=== PATIENT | male | born 1945 | race Caucasian/White ===

== ENCOUNTER 2016-11-28 22:35 | Inpatient (IN) | payer MEDICARE, OTHER ==
[~2016-11-28] VITALS: Ht 177.8 cm; Wt 118.1 kg
--- NOTE | ~2016-11-28 | CATH ---
Cardiac Diagnostic + PCI Report Demographics Patient Name SHIRA STILES Gender Male Date of 1945 Age 71 year(s) Patient Number [id number] Date of Study 11/30/2016 Visit Number [id number] Room Number G6216 [place] [id number] Ht 177.8 cm Wt 117.94 kg Referring Dane Tan Hortensia Primary Physician Physician MD Sera Saavedra MD Performing Efstraclaude Secondary Physician Physician Krista Saavedra MD Diagnostic Sera Assisting Physician Physician Krista Saavedra MD Interventional Efstratiou Physician Health Program Specialist Physician Krista Saavedra MD Findings and Conclusions Diagnostic Findings and Conclusion Severely elevated wedge pressure Severe pulmonary hypertension RCA not significantly diseased LAD mid 100% at the level of the previous stent. Subtotal stenosis of the circumflex is the culprit vessel for his non-STEMI Diagnostic Recommendations PCI of Circumflex and LAD Interventional Findings and Conclusion Successful revascularization of LAD and circumflex with a total of 5 drug eluting stent with IABP support Interventional Recommendations Aspirin 81mg and Plavix 75mg Watch for bleeding Procedure Description The patient was brought to the diagnostic cardiac catheterization-EP laboratory in the fasting, non-sedated state. Informed consent was obtained in the written and verbal form after the risks and benefits were explained. The patient had no further questions and agreed to proceed. The planned puncture-incision site(s) were shaved and prepped with ChloraPrep and draped in the usual sterile manner. Conscious sedation, supplemental oxygen, and pain control medications were delivered by a registered nurse under physician guidance. Surface ECG rhythm, blood pressure measurement, and pulse oximetry were monitored throughout the procedure. Arterial access. The access site was infiltrated with lidocaine. The vessel was entered with the Seldinger technique. A sheath was advanced into the vessel and used for catheter placement. Venous access. The access site was infiltrated with 2% lidocaine. The vessel was entered with the Seldinger technique. A sheath was advanced into the vessel and used for catheter placement. Selective left coronary angiography. A catheter was advanced into the left coronary vessel ostium under Fluoroscopic guidance. Contrast was injected by hand. Images were obtained in multiple projections. Selective right coronary angiography. A catheter was advanced into the right coronary vessel ostium under fluoroscopic guidance. Contrast was injected by hand. Images were obtained in multiple projections. Right heart catheterization. A [place] Miguel catheter was successfully advanced to the right atrium, right ventricle, pulmonary artery, and pulmonary artery wedge position under fluoroscopic guidance. Resting hemodynamics were obtained. Measurements included pressures, arterial and venous oxygen saturation samples, and cardiac output. The [place] was sutured in place and hooked to transducer on floor. IABP placement. The balloon catheter was advanced into the aorta and the tip was fluoroscopically positioned just distal to the left subclavian artery origin. The floppy guidewire was removed, and the central lumen of the catheter was flushed and attached to a pressure transducer. Balloon pumping was initiated, adjusting inflation and deflation times to maximize diastolic augmentation and minimize presystolic LV afterload. The intra-aortic balloon catheter was sutured in place at the end of the procedure. Angioplasty and Stent Placement: A guiding catheter was used to intubate the vessel. A 0.14 wire was then used to cross the lesion. A balloon catheter was placed across the lesion and inflated. The balloon catheter was then removed. A Drug Eluting Stent was placed and inflated. Post placement angiograms were performed. Arterial and Venous hemostasis was achieved. The patient was transferred to a regular nursing floor via cart accompanied by a nurse. The patient left the laboratory in stable condition. Diagnostic Cath Status: Urgent Interventional Cath Status: Urgent Procedure Procedure Type Diagnostic procedure:Angiography:, RHC w/Coronary Angio, Support:, IABP:, Insertion PCI procedure:Drug Eluting Coronary Stent:, LAD, CFX, PTCA:, LAD, CFX Indications: Acute [place] and CHF. The procedure was explained in detail to the patient. Risks, complications and alternative treatments were reviewed. Written consent was obtained. Medications Reviewed with Patient prior to Procedure. Angiographic Findings Dominance: Right Cardiac Arteries and Lesion Findings LMCA: Normal (0% Stenosis).Patent LAD: Stent occludedThere is a previous stent on Mid LAD. Lesion on Mid LAD: 100% stenosis 68 mm length reduced to 0%. Pre procedure LETHA 0 flow was noted. Post Procedure LETHA III flow was present. The guidewire cross was successful.The lesion was diagnosed as a high risk lesion.Culprit lesion. The lesion was previously treated with the following techniques: stent unknown type. This is in-stentrestenosis. Treatment results:Interventional treatment was successful. Devices used - Emerge Balloon 2.0 x 8. 4 inflation(s) to a max pressure of: 14 milo. - NC Emerge Balloon 2.5 x 15. 2 inflation(s) to a max pressure of: 20 milo. - Emerge Balloon 2.0 x 15. 2 inflation(s) to a max pressure of: 16 milo. - Promus Premier 2.25 x 24 Stent. 2 inflation(s) to a max pressure of: 20 milo. - Promus Premier 3.0 x 12 Stent. 1 inflation(s) to a max pressure of: 20 milo. - Promus Premier 3.0 x 32 Stent. 1 inflation(s) to a max pressure of: 11 milo. Lesion on Prox LAD: 90% stenosis . LCx: Lesion on Mid CX: 95% stenosis 52 mm length reduced to 0%. Pre procedure LETHA II flow was noted. Post Procedure LETHA III flow was present. The guidewire cross was successful.The lesion was diagnosed as a high risk lesion.Culprit lesion. Treatment results:Interventional treatment was successful. Devices used - Whisper Wire .014 x 190. Number of passes: 1. - Emerge Balloon 2.0 x 15. 3 inflation(s) to a max pressure of: 14 milo. - Promus Premier 2.25 x 32 Stent. 1 inflation(s) to a max pressure of: 11 milo. - NC Emerge Balloon 2.5 x 15. 3 inflation(s) to a max pressure of: 16 milo. - Promus Premier 3.0 x 20 Stent. 1 inflation(s) to a max pressure of: 16 milo. - NC Emerge Balloon 3.5 x 12. 1 inflation(s) to a max pressure of: 14 milo. Lesion on 1st Ob Tonja% stenosis . RCA: Lesion on Prox RCA: 25% stenosis . Lesion on R PDA: 30% stenosis . Coronary Tree Procedure Data Procedure Date Date: 11/30/2016Start: 11:26 AMEnd: 02:14 PM Entry Locations - Retrograde Percutaneous access was performed through the Right Radial artery (Primary location). A 6 Fr sheath was inserted. Unsuccessful closure attempt was performed using: an R band. Hemostasis was successfully obtained using Mechanical Compression. Closure Comments: 12 cc of air in the R band. - Antegrade Percutaneous access was performed through the Right Femoral vein. A 7 Fr sheath was inserted. Closure Comments: Sheath sutured in place.. - Retrograde Percutaneous access was performed through the Right Femoral artery. A 7 Fr sheath was inserted. This was exchanged for a 8 Fr sheath. Closure Comments: Sheath sutured in place. Procedure Medications Order and Administration + + + + + !Time !Medication !Dosage !Route ! + + + + + 11/30/2016 11:28 AM !Radial Heparin (ACC_3) !2500 units !I.A. ! + + + + + 11/30/2016 11:28 AM !Radial Nitroglycerin !100 mcg !I.A. ! + + + + + 11/30/2016 11:28 AM !Radial Verapamil !3 mg !I.A. ! + + + + + 11/30/2016 11:48 AM !Heparin (ACC_3) !4000 units !I.V. bolus ! + + + + + !11/30/2016 11:56 AM !Milrinone (Primacor) !0.25 mcg/kg/min !I.V. drip ! + + + + + !11/30/2016 12:30 PM !Heparin (ACC_3) !3000 units !I.V. bolus ! + + + + + 11/30/2016 12:46 PM !Fentanyl !50 mcg !I.V. ! + + + + + 11/30/2016 01:00 PM !Nitroglycerin !200 mcg !I.C. ! + + + + + !11/30/2016 01:29 PM !Plavix (ACC_8) !600 mg !P.O. ! + + + + + Devices Used - A6 Fr. BS JR 4 Diag. Catheterwas used for:Right coronary angiography. - A6 Fr. BS JL 3.5 Diag. Catheterwas used for:Left coronary angiography. - A6 Fr. XBLAD 3.5 Guide Catheterwas used for:Circumflex Intervention. Contrast Material - Isovue [id number] ml Fluoroscopy Time: Diagnostic: 28:42 minutes. Total: 28:42 minutes. Fluoroscopy Dose: Diagnostic: 3995 mGy. Total: 3995 mGy. Estimated Blood Loss: 50 ml. IABP: IABP was Inserted during procedure and prior to PCI. Additional [facility] PCI Information PCI Indication:PCI for high risk Non-STEMI or unstable angina. Medical History Allergies - Insulin. - Penicillin. - Eggs. Risk Factors The patient risk factors include:prior PCI on 03/29/2016;cerebrovascular disease, treated hypertension, family history of premature CAD, orally-treated diabetes mellitus, last creatinine: 0.8 mg/dl, creatinine clearance: 141.28 ml/min and former tobacco use. Admission Data Admission Date: 11/28/2016 Admission Time: 11:42 PM Admit Source: Transfer acute care facility Insurance Payors: Medicare. Admission Medications + +------+------+ + + + + !Medication !Dosage!Times !Last !Last !Administered !Comments ! ! ! !Per !Delivery !Delivery ! ! ! ! ! !Day !Date !Time ! ! ! + +------+------+ + + + + !ARB (any) ! ! ! ! !Yes ! ! + +------+------+ + + + + !Beta Lore! ! ! ! !Yes ! ! !(any) ! ! ! ! ! ! ! + +------+------+ + + + + !Clopidogrel ! ! ! ! !Yes ! ! + +------+------+ + + + + Clinical Evaluation Leading to Procedure - The patient's CAD presentation was assessed as: Non-STEMI. - The patient's anginal syndrome during the past two weeks was assessed as: Class IV according to the [place] Cardiovascular Society Classification System (CCS). Anti-anginal medications were prescribed during the past two weeks. The medication is: Beta Blockers. - The patient has been in a state of heart failure within the past two weeks. Snapshots Hemodynamics Condition: Rest O2 Consumption: Estimated: 301.56Heart Rate: 107 bpm Oxygen Saturation +--------+-----+----+ +---+ + !Location!pCO2 !pO2 !% Saturation !Hgb!O2 Content ! +--------+-----+----+ +---+ + !FA ! ! !87.7 ! ! ! +--------+-----+----+ +---+ + !PA ! ! !52 ! ! ! +--------+-----+----+ +---+ + Pressures (mmHg) +-----+ + !Site !Pressure ! +-----+ + !RA !/18 (19) ! +-----+ + !RV !87/17 ,20 ! +-----+ + !PCW !42/43 (40) ! +-----+ + !PA !93/42 (61) ! +-----+ + !AO !93/70 (83) ! +-----+ + !AO !101/68 (83) ! +-----+ + !AO !107/71 (89) ! +-----+ + !PA !75/31 (47) ! +-----+ + Cardiac Output +------+ + + + !Method!CO (l/min) !CI (l/min/m2) !SV (ml) ! +------+ + + + !Nolan !6.21 !2.7 !58.24 ! +------+ + + + Shunts Oxygen Values O2 Capacity 136 O2 Consumption 301.56 Flows (l/min) Qs 6.21 Vascular Resistance (dynes x sec x cm-5) + +-----+----+----+----+---------+-------+ !CO method !TSVR !SVR !TPVR!PVR !TPVR/TSVR!PVR/SVR! + +-----+----+----+----+---------+-------+ !Nolna !14.41!11.4!7.51!1.08!0.52 !0.09 ! + +-----+----+----+----+---------+-------+ !Qp or Qs !14.41!11.4! ! ! ! ! + +-----+----+----+----+---------+-------+ Signatures dtt: Roxann Zamora dtd: 11/30/16 1126 Physician Self Edit
--- NOTE | ~2016-11-28 | PUL ---
PATIENT'S NAME: LINSEY SILVA [facility] AGE: 71 Y [address] ROOM: [address] [address] LOCATION: GPCU ADMIT DATE: 11/28/2016 Pulmonary DISCHARGE DATE: 12/08/2016 FAMILY PHYSICIAN: Dominick Vela MD ATTENDING PHYSICIAN: Yousuf Lamb NAME OF PROCEDURE: Overnight Pulse Oximetry DATE OF PROCEDURE: December 07 to December 08, 2016 REASON FOR EXAM: Nocturnal hypoxemia RESULTS: It is unclear whether the test was performed on room air or supplemental oxygen. The recording time was 9 hours, 24 minutes, 36 seconds, with a total valid sampling time of 8 hours, 54 minutes, and 40 seconds. The highest pulse was 88, lowest pulse was 46, with a mean pulse of 74. The highest SpO2 was 100%, lowest SpO2 was 61%, with a mean SpO2 of 91.6%. The patient spent 1 hour, 55 minutes, and 56 seconds with SpO2 less than 89%, representing 21.7% of the total sleep time. The desaturation event index was elevated at 77.1. PHYSICIAN INTERPRETATION: The patient has evidence of significant nocturnal hypoxia and would qualify for supplemental oxygen as per Medicare criteria. However because of his significant nocturnal hypoxia with an elevated desaturation event index a sleep study is recommended at this time. MD MANAS REYNA/angelo /[id number] dtt: 12/11/16 1340 , LIZZIE PIZANO dtd: 12/11/16 0734
--- NOTE | ~2016-11-28 | CON ---
PATIENT'S NAME: JAYA SESAY [facility] AGE: 71 Y [address] ROOM: [facility] [place], [place] [address] LOCATION: GICU ADMIT DATE: 11/28/2016 Consultation DISCHARGE DATE: FAMILY PHYSICIAN: Dominick Vela MD ATTENDING PHYSICIAN: ALIZE CALDERÓN REFERRING PHYSICIAN: Francisco J Coreas MD ADDENDUM: Jaya Sesay has been readmitted with possible lower GI bleeding. However, I got another call from the nurse, who is now saying that the patient also had low blood pressure. In view of this, we will be holding of on the preparation. However, I did discuss this with Dr. Calderón. In view of his hypotension and possible persistent bleeding, I have suggested that we perform an urgent CT angiogram done. Pending the results of that, we might be able to localize the location of bleeding and intervene accordingly. Should there be an upper GI bleeding, I recommend to do an urgent endoscopy tonight. In case of a lower GI bleed, we did discuss the use of interventional Radiology. FRANCISCO J COREAS MD AAN/modl /[id number] d: 11/29/16 0344 t: 11/30/16 1833, CONSULTATION REPORT
--- NOTE | ~2016-11-28 | HP ---
PATIENT'S NAME: LINSEY SILVA [facility] AGE: 71 Y [address] ROOM: [place] [address] LOCATION: GICU ADMIT DATE: 11/28/2016 History & Physical DISCHARGE DATE: FAMILY PHYSICIAN: Dominick Vela MD ATTENDING PHYSICIAN: ALIZE CALDERÓN DATE OF SERVICE: PRIMARY CARE PHYSICIAN: None. CHIEF COMPLAINT: Gastrointestinal bleed. HISTORY OF PRESENT ILLNESS: This is a 71-year-old male with a history of transient ischemic attack and coronary artery disease, status post stent. The patient is currently on Plavix. He had a stent in February of last year, after which he was placed on Plavix. The patient states that he had gastrointestinal bleed several years ago when he was placed on Aggrenox. The patient presented to [facility] with gastrointestinal bleed. He started having bright red bleeding per rectum. He has not noticed any black stools. The patient was apparently fine for the past five to six years. He is not on any long-term anticoagulation. The patient was transferred to [facility] for higher level of care, and definitive GI evaluation under Dr. Dietz's care. As per history obtained from the patient, he started having gastrointestinal bleed at about 08:30 a.m. yesterday. He then presented to [facility] and was admitted and evaluated. He continued to have gastrointestinal bleed, and his hemoglobin trended down from 14.5 to last reported about 9. The patient is lightheaded. His blood pressure is 110 systolic. He complains of lightheadedness at this point of time. He denies any chest pain or shortness of breath. He denies abdominal pain, diarrhea, or constipation. He does have slight tenderness to palpation in his left upper quadrant. He denies any aches or pains. He denies fever history. No other complaints at this point in time. REVIEW OF SYSTEMS: A 10-point review of systems done, and was otherwise negative except as mentioned above. HOME MEDICATIONS: PATIENT'S NAME: LINSEY SILVA [facility] AGE: 71 Y [address] ROOM: [place] [address] LOCATION: GICU ADMIT DATE: 11/28/2016 History & Physical DISCHARGE DATE: FAMILY PHYSICIAN: Dominick Vela MD ATTENDING PHYSICIAN: ALIZE CALDERÓN Per OCT. ALLERGIES: PENICILLIN AND INSULIN, DIFFERENT TYPES. FAMILY HISTORY: Parents with heart disease. Sibling with congenital heart disease. PAST SURGICAL HISTORY: 1. Cholecystectomy. 2. Appendectomy. 3. Tonsillectomy. 4. Heart stent in February of 2016. PAST MEDICAL HISTORY: 1. History of diabetes mellitus. 2. History of transient ischemic attack. 3. History of gastrointestinal bleed in the past. 4. Coronary artery disease, status post stent. 5. Diabetes mellitus. 6. Atrial fibrillation. 7. Hypertension. SOCIAL HISTORY: He denies smoking or alcohol use. He is a former smoker with 89-biot-rlyc smoking history. PHYSICAL EXAMINATION: VITAL SIGNS: Temperature was 98.3, pulse was 115 and regular, respirations were 29, blood pressure was 113/62, and saturation was 95% on room air. GENERAL: The patient is alert and oriented x3. He follows all commands. In no acute distress. HEENT: Head: Normocephalic and atraumatic. Eyes: Pupils were equal, round, and reactive to light. Extraocular muscles were intact. Mouth: Oropharynx was moist. NECK: Supple. No nuchal rigidity. HEART: Tachycardic. Regular rhythm. LUNGS: Clear to auscultation bilaterally. ABDOMEN: Soft, nontender, and nondistended. Bowel sounds are present. No guarding or rigidity was noted. EXTREMITIES: No clubbing, cyanosis, or edema. VASCULAR: Pulses are 2+ distally bilaterally. NEUROLOGIC: The patient is alert and oriented x3. He follows all commands. He moves all extremities. Cranial nerves II through XII were grossly intact. PATIENT'S NAME: LINSEY SILVA [facility] AGE: 71 Y [address] ROOM: [place] [address] LOCATION: [facility] ADMIT DATE: 11/28/2016 History & Physical DISCHARGE DATE: FAMILY PHYSICIAN: Dominick Vela MD ATTENDING PHYSICIAN: ALIZE CALDERÓN LABORATORY DATA AND DIAGNOSTIC STUDIES: Studies were reviewed from the referral hospital. The patient had a CMP (comprehensive metabolic panel) that showed glucose of 130, BUN of 18, creatinine of 0.9, total bilirubin of 0.54, alkaline phosphatase of 54, ALT of 6, AST of 10, albumin of 3.2, globulin of 2.6, calcium of 8.3 and corrected calcium of 8.9, sodium of 137, potassium of 4.0, chloride of 99, bicarbonate of 26.6, anion gap of 16, GFR (glomerular filtration rate) of 87, and lipase of 14. Troponin T is 0.04 and normal. Complete blood count had shown hemoglobin of 9.0, PTT of 30.5, INR of 1.2, PT of 15.5, WBC of 8.1, initial hemoglobin of 10.4, hematocrit of 31.8, and platelets of 242. Studies were done at [facility]. EKG at [facility] showed sinus rhythm with PVCs and a rate of 96 beats per minute. No acute ST changes were noted. Complete blood count showed a white count of 9.9, hemoglobin of 8.9, hematocrit of 28.4, and platelets of 249. CMP (comprehensive metabolic panel) showed sodium of 143, potassium of 3.9, chloride of 107, bicarbonate of 25, BUN of 13, creatinine of 0.8, glucose of 101, calcium of 7.7, total protein of 5.5, albumin of 2.6, AST of 8, ALT of 12, alkaline phosphatase of 51, total bilirubin of 0.6, anion gap of 14.9, and globulin of 2.9. Glomerular filtration rate of more than 60. Hemoglobin A1c was 7.8. PT is 12.3, INR is 1.2, and PTT is 25. The patient had a chest x-ray done that showed no acute cardiopulmonary abnormality. CT angiogram of abdomen and pelvis was done and showed no active bleeding. Essentially normal CT of the abdomen and pelvis with no active gastrointestinal bleed visualized. Enlarged prostate measuring 5.5 x 3.9 cm noted. Left renal cyst measuring 2.3 cm was noted. ASSESSMENT AND PLAN: 1. Gastrointestinal bleed. I will continue checking H&H checks q.4 hours. We will transfuse PRBCs (packed red blood cells) if hemoglobin is less PATIENT'S NAME: LINSEY SILVA [facility] AGE: 71 Y [address] ROOM: [place] [address] LOCATION: [facility] ADMIT DATE: 11/28/2016 History & Physical DISCHARGE DATE: FAMILY PHYSICIAN: Dominick Vela MD ATTENDING PHYSICIAN: ALIZE CALDERÓN than or equal to 7.0. The patient is currently getting one unit of PRBC (packed red blood cells). Consult GI for further plan per Dr. Dietz. Continue Protonix gtt. 2. Hypotension. I will utilize Lei-Synephrine for hypotension. We will transfuse PRBCs (packed red blood cells) as needed. Keep MAP (mean arterial pressure) greater than 65. 3. History of coronary artery disease, status post stent. I will hold Plavix for now. 4. History of hypertension. Hold blood pressure medications since the patient is slightly hypotensive. 5. Diabetes mellitus. The patient is allergic to insulin. We will do Accu- Cheks. We will continue him on his home anti-diabetic medication. 6. Deep vein thrombosis prophylaxis. Sequential compresssion devices to legs and history of gastrointestinal bleed. 7. Code status is full code. Discussed with the patient at the time of admission. 8. History of transient ischemic attack with no neurologic deficits. Monitor for now. ALIZE CALDERÓN MD MT/modl /[id number] D: T: HISTORY & PHYSICAL
--- NOTE | ~2016-11-28 | DS ---
PATIENT'S NAME: LINSEY SILVA [facility] AGE: 71 Y [address] ROOM: [address] [place], [place] [address] LOCATION: GPCU ADMIT DATE: 11/28/2016 Discharge Summary DISCHARGE DATE: 12/08/2016 FAMILY PHYSICIAN: Dominick Vela MD ATTENDING PHYSICIAN: Yousuf Lamb FINAL DIAGNOSES: 1. Hemorrhagic shock, secondary to gastrointestinal bleed. 2. Acute gastrointestinal bleed. 3. Tut-UQ-ivsudvkzi myocardial infarction. 4. Hjgua-kd-nmnbxek systolic congestive heart failure. 5. Acute blood loss anemia. 6. Nocturnal hypoxia. 7. Acute hypoxic respiratory failure. 8. Diabetes mellitus, insulin using. 9. Essential hypertension. 10. Hypokalemia. 11. Hypomagnesemia. PROCEDURES: 1. He had a heart cath with stent placement by Dr. Zamora on November 30, 2016. The patient had significant disease in the LAD and circumflex and was revascularized with 5 drug-eluting stents and was put on a balloon pump postprocedure. For details of hospitalization, please see the history and physical dictated by Dr. Yousuf Lamb. 2. EGD colonoscopy with Dr. Dietz December 04, 2016. LABORATORY STUDIES: On admission, sodium was 143, discharge 136, potassium on admit was 3.9, got as low as 3.1, at discharge 3.6; BUN on admission was 13, at discharge 19; creatinine on admission was 0.8, high it got was 1.1, discharge 0.9. Liver enzymes were normal. Magnesium was 1.9, at discharge, it was 1.6. Troponin on admission was 0.856, on November 30, it got as high as 21.4. Pro-BNP on admission was 4452, most prior to discharge 2975. Hemoglobin A1c 7.5. White blood cell count on admission was 1.9, most prior to discharge 12.2; hemoglobin on admission was 8.9, at discharge 10.2, platelet count on admission 249, most prior to discharge 392. X-RAY DATA: Chest x-ray on admission did show an enlarged cardiac silhouette with vascular congestion. CT scan of the abdomen did not show any evidence of abdominal aortic aneurysm or rupture. Chest x-ray on admission did show cardiomegaly and vascular congestion and as with the x-ray shows on December 01 and December 03 as well. CARDIOVASCULAR DATA: Echocardiogram on admission showed that his ejection fraction was 20% to 25%. He had mild left ventricular hypertrophy. He had PATIENT'S NAME: LINSEY SILVA [facility] AGE: 71 Y [address] ROOM: [place] [address] LOCATION: GPCU ADMIT DATE: 11/28/2016 Discharge Summary DISCHARGE DATE: 12/08/2016 FAMILY PHYSICIAN: Dominick Vela MD ATTENDING PHYSICIAN: Yousuf Lamb extensive wall motion abnormalities and reduced right ventricular function. HOSPITAL COURSE: The patient was admitted and accepted in transfer from [place] with hemorrhagic shock. He had received blood en route. He was admitted into the Intensive Care Unit and was given aggressive IV hydration. He was placed on IV Protonix. He was typed and crossed for blood. Dr. Dietz was asked to see the patient. He did feel that he would most likely would need to proceed with an EGD and colonoscopy. Laboratory was checked including a troponin that did return elevated. He was put on sliding scale insulin. He did receive blood as needed. He did eventually need IV Lei-Synephrine to support his blood pressure. He was initiated on Lantus to help try and control his blood pressure. We did trend his hemoglobins and transfused him when it was felt that it was appropriate. With the elevation in the troponin, Cardiology was consulted. Please see the note dictated by Andrez Acosta. Dr. Zamora did feel that the patient needed to go to [facility] as it was noted that he was starting to get into congestive heart failure due to the volume he had received. He was taken to the [facility]. Please read his cath note for full details. He did receive 5 stents and was admitted back into the Intensive Care Unit on a balloon pump. He did receive more blood postoperatively. He did receive a total of 4 units of packed red blood cells here. He did require being on heparin with the balloon pump. It was felt that with the balloon pump and Lasix they were able to mobilize significant amounts of fluid. Eventually, the balloon pump was removed, his medications were adjusted to control his blood pressure, heart rate, and to try and optimize his left ventricular function. His potassium and magnesium replaced as necessary and adjustments were made in his insulin. It was felt that he needed to have an EGD and colonoscopy prior to discharge. I discussed with Dr. Dietz and he did concur. He did undergo an EGD and colonoscopy, he was found to have gastritis, but there was no evidence of anything that was actively bleeding. The patient was restarted on a diet and he did tolerate that. He was transferred out of the Intensive Care Unit and transferred to the floor, where he continued to receive medications to try and treat the congestive heart failure as well as improve his blood pressure. There was concern about nocturnal hypoxia and he underwent an overnight trend oximetry on December 07 and it did in fact show that he had episodes of desaturation during the night and did in fact qualify for nocturnal oxygen. After discussion with Dr. Zamora, it was felt that the patient was stable for discharge, and the patient is discharged to home. DISCHARGE INSTRUCTIONS: He is to follow his diabetic diet. He is to follow up with Dr. Vela, his primary care provider, in 3-5 days, and Dr. Zamora in 2 weeks. He is to get outpatient cardiac rehab in his home town. He does need to have a sleep study, but he was told this could be setup by his primary care provider, Dr. Vela. PATIENT'S NAME: LINSEY SILVA [facility] AGE: 71 Y [address] ROOM: [address] [address] LOCATION: GPCU ADMIT DATE: 11/28/2016 Discharge Summary DISCHARGE DATE: 12/08/2016 FAMILY PHYSICIAN: Dominick Vela MD ATTENDING PHYSICIAN: Yousuf Lamb DISCHARGE MEDICATIONS: 1. Aspirin 81 mg daily. 2. Lipitor 80 mg daily. 3. Coreg 12.5 mg twice daily. 4. Victoza 0.6 mg daily. 5. Nitrostat 0.4 mg sublingual p.r.n. chest pain. 6. Zyrtec 10 mg daily. 7. Nexium 20 mg twice daily. 8. Humibid LA 600 mg twice daily. 9. Multivitamin daily. 10. Lasix 40 mg twice a day. 11. Potassium chloride 40 mEq daily. 12. Toujeo 30 units subcu daily. 13. Xalatan eyedrops 1 drop each eye at bedtime. 14. Brilinta 60 mg twice daily. 15. Aldactone 25 mg daily. 16. Magnesium 250 mg daily. 17. Meclizine 25 mg twice daily as needed for dizziness. 18. Glipizide/metformin 5/500 1 tablet twice daily. 19. Prinivil 5 mg daily. PROGNOSIS: Overall, prognosis at discharge was good. JORDAN ELLIS MD LAW/modl /[id number] CC: MD Roxann Devine MD d: 12/09/16 0146 t: 12/09/16 1816, DISCHARGE SUMMARY
--- NOTE | ~2016-11-28 | ECHO ---
Transthoracic Echocardiography Report (TTE) Demographics Patient Name LINSEY SILVA Date of Study 11/30/2016 Patient Number [id number] Visit Number [id number] Date of 1945 Room Number G6216 Gender Male Number Age 71 year(s) Referring Dane Bazan Ager Operator Aleida Gusman [facility] Physician MD Mirela Daigle MD Physician Interpreting Sera Velasco Intensive Care Unit Registered Nurse Physician A Supervising Ordering Mirela Saavedra MD, MD/MLP Physician Nurse Stress Supervisor Carpenters Conclusions Contractility Score Summary At rest the following contractility abnormalities were noted: Hypokinesis of the Mid ulysses-lateral, the Mid infero-septal, the Mid inferior, the Mid infero-lateral, the Basal anterior and the Basal ulysses-lateral segments; Akinesis of the Mid anterior, the Mid ulysses-septal, the Apical inferior, the Apical septal, the Apical lateral, the Apical anterior and the Apical cap segments. Contractility of all other segments appeared normal. Summary Technically difficult exam. The estimated left ventricular ejection fraction is 20-25%. The left ventricle is upper normal in size . Mild concentric left ventricular hypertrophy. Diastolic function indeterminate due to patient's arrhythmia. Extensive wall motion abnormalities Mildly dilated right ventricle. Mildly reduced right ventricular function. Normal mitral valve structure Mild-moderate mitral regurgitation by color Doppler. Trivial posterior pericardial effusion. Procedure Type of Study TTE procedure:2D Echocardiogram, M-Mode, Doppler , Color Doppler. Procedure Date Date: 11/30/2016 Start: 07:03 AM Study Location: Inpatient Portable Technical Quality: Fair due to body habitus. Indications:Hypotension. Patient Status: Routine HR: 123 bpm BP: 114/73 mmHg Allergies - Insulin. - Penicillin. - Eggs. M-Mode/2D Measurements LV Diastolic Dimension: 5 cm LV Systolic Dimension: 4.39 cm LV Septum Diastolic: 1.23 cm LV PW Diastolic: 1.2 cm AO Root Dimension: 2.6 cm Cardiac Output: 5.28 l/min LA Dimension: 4.4 cm LVOT: 2.1 cm LVOT VTI: 12.4 cm RV Base: 4.67 cm LV Stroke volume: 42.93 ml RV Length: 7.14 cm TAPSE: 1.63 cm TDI-S': 10.6 cm/s Doppler Measurements AV Peak Velocity: 1.28 m/s MV Peak E-Wave: 0.98 m/s AV Peak Gradient: 6.55 mmHg AV Mean Gradient: 4 mmHg LVOT Peak Velocity: 0.83 m/s E' Septal Velocity: 0.11 m/s E' Lateral Velocity: 0.08 m/s Findings Left Ventricle The left ventricle is upper normal in size . Mild concentric left ventricular hypertrophy. Diastolic function indeterminate due to patient's arrhythmia. Extensive wall motion abnormalities Right Ventricle Mildly dilated right ventricle. Mildly reduced right ventricular function. Left Atrium The left atrium is moderately dilated. Right Atrium The right atrium is mild to moderately dilated. Unable to visualize IVC due to poor subcostal window. Mitral Valve Normal mitral valve structure Mild-moderate mitral regurgitation by color Doppler. Aortic Valve The aortic valve is mildly sclerotic. Tricuspid Valve Normal tricuspid valve structure and function. No significant tricuspid regurgitation. Pulmonic Valve The pulmonic valve is not well visualized. Pericardial Effusion Trivial posterior pericardial effusion. Miscellaneous Visualized portions of the aortic root and ascending aorta appear normal in size. Pleural Effusion No evidence of pleural effusion. Contractility Score LV regional wall motion:(0-Non visualized 1-Normal 2-Hypokinesis 3-Akinesis 4-Dyskinesis 5-Aneurysm) Signature dtt: Roxann Zamora dtd: 11/30/16 0703 Physician Self Edit
--- NOTE | ~2016-11-28 | CON ---
PATIENT'S NAME: LINSEY SILVA [facility] AGE: 71 Y [address] ROOM: [id number] [place], [place] [address] LOCATION: GICU ADMIT DATE: 11/28/2016 Consultation DISCHARGE DATE: FAMILY PHYSICIAN: Dominick Vela MD ATTENDING PHYSICIAN: ALIZE CALDERÓN REFERRING PHYSICIAN: Travis Dietz MD REASON FOR CARDIOLOGY CONSULT: Elevated troponin. HISTORY OF PRESENT ILLNESS: This is a 71-year-old male who is in a very difficult situation. He initially presented to [facility] with GI bleeding. He had anabell red blood in his stool that started early in the morning. He was then transferred to [facility] for higher level of care and evaluation by the Gastrointestinal Service due to a drop in hemoglobin. The patient denies any history of myocardial infarction, but he does have a history of a stent to an unknown vessel in 2016. He also has a noted history of GI bleed while on aspirin and Plavix as well as another GI bleed about 6 years ago while on Aggrenox after a TIA. A brief echocardiogram at the bedside by Dr. Zamora showed apical akinesis as well as an ejection fraction of 30%. Overall, the patient denies chest pain. He also denies palpitations, shortness of breath, nausea, or vomiting. He does admit to being lightheaded at times, but denies any syncope. The patient appears quite anxious and initial evaluation by Dr. Zamora on 11/29/2016, he discussed the patient's prognosis with the daughter who requests that our service not divulge to the patient that he is having a non-ST elevated myocardial infarction. Dr. Zamora did speak with the daughter and explained this is a potentially life-threatening situation. PAST MEDICAL HISTORY: 1. Coronary artery disease. 2. History of TIA. 3. Hypertension. 4. Diabetes mellitus. 5. History of GI bleeding as well as current GI bleed. 6. Past history of atrial fibrillation. 7. Dyslipidemia. PAST SURGICAL HISTORY: 1. Cholecystectomy. 2. Appendectomy. 3. Previous coronary stenting in 2016, the patient is unsure of vessel. 4. Tonsillectomy. FAMILY HISTORY: The patient's parents both have a history of heart disease. He also has a PATIENT'S NAME: STRUSS, [facility] AGE: 71 Y [address] ROOM: [place] [address] LOCATION: GICU ADMIT DATE: 11/28/2016 Consultation DISCHARGE DATE: FAMILY PHYSICIAN: Dominick Vela MD ATTENDING PHYSICIAN: ALIZE CALDERÓN sibling with a history of congenital heart disease. SOCIAL HISTORY: The patient is a former cigarette smoker. He smoked 1 pack of cigarettes per day for a total of 20 years. He denies alcohol or illicit drug use. CURRENT MEDICATIONS: 1. Lasix 40 mg IV twice daily. 2. Lei-Synephrine IV for hypotension. 3. Protonix IV drip. 4. Requip 1 mg. 5. Toujeo subcu daily in the evening. MEDICATION ALLERGIES: Include insulin causing itching as well as penicillin. He also has allergy to egg yolks which caused hives. REVIEW OF SYSTEMS: Pertinent positive review of systems listed in the HPI. All other review of systems evaluated and negative. PHYSICAL EXAMINATION: VITAL SIGNS: Temperature 97.6, pulse 123, respirations 24, blood pressure 116/75, and O2 saturation 90% on 2 L nasal cannula. The patient weighs 117.5 kg. SKIN: [place], warm, and dry. EYES: Sclerae clear. No xanthelasmas. ENT: Oral mucosa is pink and moist. No jugular venous distention. No carotid bruits. CHEST: Respirations are even and unlabored. Lungs are clear to auscultation. HEART: Regular rate and rhythm. Normal S1, S2. Does have the presence of an S4 gallop. ABDOMEN: Soft and nontender. MUSCULOSKELETAL: Equal muscle strength to upper and lower extremities bilaterally against resistance. EXTREMITIES: Peripheral pulses palpable. No clubbing or cyanosis noted. Does have mild lower extremity edema present. PSYCH: Alert and oriented, but anxious. IMPRESSION AND PLAN: Per Dr. Zamora: 1. Acute non-ST elevated myocardial infarction. 2. Acute gastrointestinal bleeding. Hemoglobin currently stable and plans for a colonoscopy. 3. Coronary artery disease with a history of stenting. His daughter admits PATIENT'S NAME: LINSEY SILVA [facility] AGE: 71 Y [address] ROOM: [place] [address] LOCATION: GICU ADMIT DATE: 11/28/2016 Consultation DISCHARGE DATE: FAMILY PHYSICIAN: Dominick Vela MD ATTENDING PHYSICIAN: ALIZE CALDERÓN that there is history of previous blockages, but they were not fixed with a previous stent due to risk for acute renal failure secondary to contrast dye. 4. Hypertension. 5. Anxiety. Case discussed again with Dr. Dietz, the truck hopper. The patient's troponins have peaked, but are still quite high and Dr. Dietz feels that the patient needs to have his heart issues addressed and we will have to accept the risk of bleeding. This was discussed with the family and they do state understanding of the significant risk of hemorrhage, but that he is in failure and we have to see if we can help. We will urgently take him to the catheterization suite for selective coronary angiography and possible percutaneous intervention. We will continue to monitor, evaluate, and treat as appropriate. Thank you for this consult. Thank you for allowing [facility] to interact in the care of this patient. YNES CÁRDENAS APRN FOR MD TERRIE ODEN/margiel /[id number] d: 12/01/16 0122 t: 12/16/16 1048, CONSULTATION REPORT
--- NOTE | ~2016-11-28 | CON ---
PATIENT'S NAME: LINSEY SILVA [facility] AGE: 71 Y [address] ROOM: [place] [address] LOCATION: GICU ADMIT DATE: 11/28/2016 Consultation DISCHARGE DATE: FAMILY PHYSICIAN: Dominick Vela MD ATTENDING PHYSICIAN: YOUSUF CALDERÓN DATE OF CONSULTATION: 11/29/2016 REFERRING PHYSICIAN: Travis Dietz MD REFERRING PHYSICIAN: Yousuf Calderón MD. CONSULTING PHYSICIAN: Travis Dietz MD. REASON FOR CONSULTATION: Possible lower GI bleeding. HISTORY OF PRESENT ILLNESS: The patient is a pleasant 71-year-old white male, who was admitted to [facility] with a 12-hour history of rectal bleeding. According to the patient, he started developing fresh blood per rectum in the morning. He continued to having it during the day. He presented to the emergency room in [facility]. He was found to have somewhat low blood pressure. He also had some dizziness. His hemoglobin had dropped from around the baseline of 14 to 9. He was transferred here for higher level of care. The patient has mild left lower quadrant discomfort. He had undergone a cardiac catheterization and stent placement in February of 2016. He said he had similar problem several years ago. At that time, he did have an anticoagulation for the cardiac catheterization. He has underwent upper endoscopy and colonoscopy at that time and found to be negative. We do not have access to those results at this time. The patient denies any history of nausea, vomiting, or hematemesis. Denies any history of NSAID use. The stool according to him is diarrhea along with fresh blood material. PAST MEDICAL HISTORY: Significant for coronary artery disease. He has hypertension, dyslipidemia, he has had longstanding GERD, he has diabetes, he has had a transient ischemic attack in the past. He has had atrial fibrillation. He had a colonoscopy and polypectomy in 1999. PAST SURGICAL HISTORY: Significant for cholecystectomy and appendectomy. He has also had back problems, for which he uses hydrocodone on and off. PATIENT'S NAME: LINSEY SILVA [facility] AGE: 71 Y [address] ROOM: [place] [address] LOCATION: GICU ADMIT DATE: 11/28/2016 Consultation DISCHARGE DATE: FAMILY PHYSICIAN: Dominick Vela MD ATTENDING PHYSICIAN: YOUSUF CALDERÓN ALLERGIES: HIS ALLERGIES INCLUDE: 1. AGGRENOX, WHICH GAVE HIM MELENA. 2. DARVOCET GAVE HIM CRAMPS. 3. LEVEMIR GIVES HIM HIVES. 4. PENICILLIN GIVES HIM HIVES. Additional allergies as per MAR FAMILY HISTORY: Noncontributory to his problem. PSYCHOSOCIAL: As per chart. REVIEW OF SYSTEMS: A detailed 10-point review of system was done. It was found to be negative other than what is mentioned in history of present illness and past medical history. PHYSICAL EXAMINATION: GENERAL: He is alert and awake. VITAL SIGNS: His blood pressure 94/71 . GENERAL: Reveals no pallor, no icterus. CHEST: Clear to auscultation bilaterally. No wheezing or rhonchi. NECK: Supple. I do not feel any masses. No carotid bruits are heard. ABDOMEN: There is a long midline scar left lower quadrant tenderness. No rigidity, guarding, or rebound. MUSCULOSKELETAL: No obvious changes or deformities are seen. NEUROLOGIC: Grossly nonfocal. LABORATORY DATA: His labs done today show hemoglobin 9, his INR 1.2, WBC 8.1, MCV was 80.9, platelet count 249. His glucose is 130, BUN is 18, creatinine is 0.9. Total bilirubin 0.54, alkaline phosphatase 54, ALT is 8, AST of 10. Sodium 137, potassium 4.0, chloride is 99, Lipase is 14. IMPRESSION: The patient with a history of cardiac catheterization on anticoagulant therapy, now presenting with low-grade hematochezia. This appears to be lower gastrointestinal bleeding. He has some slight hemodynamically instability. In view of this, we will be admitting him to the ICU. He should continue the PPI. We should watch his hemoglobin. His hemoglobin should be kept around 10 g/dL. The patient will be scheduled for an upper endoscopy and colonoscopy tomorrow PATIENT'S NAME: LINSEY SILVA [facility] AGE: 71 Y [address] ROOM: [id number] [place] [id number] LOCATION: GICU ADMIT DATE: 11/28/2016 Consultation DISCHARGE DATE: FAMILY PHYSICIAN: Dominick Vela MD ATTENDING PHYSICIAN: YOUSUF CALDERÓN with procedure for endoscopy could be done to ensure there is no additional source of bleeding that can cause problems for him in the long run. The procedure of upper endoscopy and colonoscopy was explained in detail to the patient. All risks, including but not limited to, bleeding, perforation, possible need for surgery explained. Informed consent was then obtained. The patient's questions answered. This case was also discussed with the admitting hospitalist, Dr. Calderón. He is also on-board with us on this patient. MD JAMAL HUGHES/kalen /[id number] d: 11/29/167 t: 11/30/16 1828, CONSULTATION REPORT
[2016-11-29 01:23] LABS: BASOPHIL # 0.1 K/uL (0.0-0.2); BASOPHIL % 0.8 %; EOSINOPHIL # 0.3 K/uL (0.0-0.5); EOSINOPHIL % 3.1 %; HEMATOCRIT 28.4 % (37.0-53.0); HEMOGLOBIN 8.9 g/dL (11.0-16.0); IMMATURE GRANULOCYTE % 0.4 %; LYMPHOCYTE # 1.3 K/uL (0.8-4.0); LYMPHOCYTE % 13.1 %; MCH 25.4 pg (27.0-34.0); MCHC 31.3 gm/dL (32.0-36.5); MCV 80.9 fl (83.0-98.0); MONOCYTE # 0.9 K/uL (0.0-1.0); MONOCYTE % 8.7 %; MPV 10.2 fl (9.4-12.4); NEUTROPHIL # (ANC) 7.3 K/uL (1.4-9.0); NEUTROPHIL % 73.9 %; NRBC % 0 /100WBC (0-0.00); PLATELET COUNT 249 K/uL (150-450); RBC 3.51 M/uL (3.50-5.50); RDW-CV 16.6 % (11.9-14.6); WBC 9.9 K/uL (4.0-11.0)
[2016-11-29 01:32] LABS: INR - (THERAPEUTIC) 1.2 (0.9-1.1); PROTIME 12.3 SECONDS (9.6-11.1); PTT 25 SECONDS (25-32)
[2016-11-29 01:40] LABS: ALBUMIN 2.6 gm/dL (3.5-5.0); ALK PHOS 51 IU/L (33-138); ALT 12 IU/L (12-78); ANION GAP 14.9 (10.0-19.0); AST 8 IU/L (10-40); BLOOD UREA NITROGEN 13 mg/dL (6-24); CALCIUM 7.7 mg/dL (8.5-10.5); CHLORIDE 107 mMol/L (96-110); CO2 25 mMol/L (22-32); CREATININE 0.8 mg/dL (0.6-1.3); ESTIMATED GFR (MDRD EQUATION) > 60; POTASSIUM 3.9 mMol/L (3.7-5.1); SODIUM 143 mMol/L (135-145); TOTAL BILIRUBIN 0.6 mg/dL (0.0-1.5); TOTAL PROTEIN 5.5 g/dL (6.0-8.4)
[2016-11-29 05:51] LABS: HEMATOCRIT 30.2 % (37.0-53.0); HEMOGLOBIN 9.7 g/dL (11.0-16.0)
--- NOTE | 2016-11-29 07:26 | NUR ---
pt admitted for a GI bleed under the care of Dr corbett with Dr Dietz consulting. Pt trying to void at bedside upon admission became clammy and faint. Pt assisted back to bed. swanson had to be placed due to patient's inability to void in bed. Pt complained repeated of having the swanson out d/t pain. Pt educated that patient would have to stay on bedrest due to hypotension. Although unhappy, patient agreed to keep swanson. Neosynephrine was maxed out to keep sbp > 90. A unit of PRBC was administered and neosynephrine was able to wean down to 0.7 mcg/kg/min. Colonscopy prep was placed on hold d/t hypotension. Instead pt was taken to CT for a ct with contrast of the pelvis and abdomen. CT found nothing significant. Pt was placed on 2 liters per NC while he was sleeping.
[2016-11-29 09:05] LABS: HEMATOCRIT 31.5 % (37.0-53.0); HEMOGLOBIN 9.7 g/dL (11.0-16.0)
[2016-11-29] MEDS ORDERED: CLOPIDOGREL75 MG PO (11:13)
[2016-11-29] MEDS ORDERED: MECLIZINE HCL25 MG PO ×2 (11:14)
[2016-11-29] MEDS ORDERED: XALATAN2.5 ML OPHTH (11:14)
[2016-11-29] MEDS ORDERED: GLIPIZIDE-METF1 EAC2 PO (11:15)
[2016-11-29] MEDS ORDERED: CARDURA4 MG PO (11:15)
[2016-11-29] MEDS ORDERED: LASIX40 MG PO (11:16)
[2016-11-29] MEDS ORDERED: TOPROL XL100 MG PO (11:16)
[2016-11-29] MEDS ORDERED: TOUJEO SOL300 UNIT/1 SUB-Q (11:17)
[2016-11-29] MEDS ORDERED: VICTOZA 2-0.6 MG/0.1 PO (11:18)
[2016-11-29] MEDS ORDERED: ZYRTEC10 MG PO (11:19)
[2016-11-29] MEDS ORDERED: NEXIUM20 MG PO (11:19)
[2016-11-29] MEDS ORDERED: NITROSTAT0.4 MG SL (11:19)
[2016-11-29] MEDS ORDERED: HUMIBID LA (MU600 MG PO (11:20)
[2016-11-29] MEDS ORDERED: MAGNESIUM250 M1 PO (11:21)
[2016-11-29] MEDS ORDERED: COZAAR100 MG PO (11:21)
[2016-11-29] MEDS ORDERED: THERA-VITE W/ B1 TAB PO ×2 (11:21→11:22)
[2016-11-29 13:03] LABS: HEMATOCRIT 31.8 % (37.0-53.0); HEMOGLOBIN 10.1 g/dL (11.0-16.0)
[2016-11-29 17:55] LABS: HEMATOCRIT 31.1 % (37.0-53.0); HEMOGLOBIN 9.8 g/dL (11.0-16.0)
--- NOTE | 2016-11-29 19:01 | NUR ---
Significant Event: Alert and oriented. NeoSynephrine weaned off. Continues to be tachycardic. 1 unit of blood and 1L NS given this AM. Has had multiple bloody stools this shift. Plan for EGD/colonoscopy tomorrow. Follow up: continue
[2016-11-29 20:09] LABS: HEMATOCRIT 32.2 % (37.0-53.0)
[2016-11-29 23:53] LABS: HEMATOCRIT 32.2 % (37.0-53.0)
[2016-11-30 05:13] LABS: HEMATOCRIT 33.4 % (37.0-53.0); HEMOGLOBIN 10.6 g/dL (11.0-16.0)
--- NOTE | 2016-11-30 06:01 | NUR ---
PT REMAINS OFF PRESSORS THIS SHIFT. BOWEL PREP COMPLETED, STOOLS CHANGING FROM HAL BLOOD TO CLEAR/GREEN/YELLOW WITHOUT BLOOD. H/H >/=10.0 THIS SHIFT; NO TRANSFUSION NEEDED. BP CURRENTLY 110S SYSTOLIC. DESATS DURING NIGHT REQUIRING RE-INITIATION OF O2 THERAPY. JESÚS MEJIARN
[2016-11-30 08:29] LABS: HEMATOCRIT 31.6 % (37.0-53.0)
--- NOTE | 2016-11-30 11:42 | NUR ---
11/30/16: PT'S 1100 ACCUCHECK WAS NOT CHECKED DUE TO THE PT GOING TO THE MOLD CLOSER EMERGENTLY. QU[place]IN PARK
--- NOTE | 2016-11-30 12:57 | NUR ---
Significant Event: PT ALERT AND ORIENTED X3; NEURO CHECKS INTACT. TACHYCARDIA WITH RATES IN THE 115'S-120'S. TACHYPNEIC WITH RATES IN THE MID TO UPPER 20'S. O2 AT 2 LITERS PER NASAL CANNULA. NEEDS ENCOURAGEMENT WITH INCENTIVE SPIROMETER. SHORTNESS OF BREATH WITH MINIMAL ACTIVITY AND AT REST. 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 PIV'S X2 INTACT; PROTONIX DRIP INFUSING AT 10 ML/HR CONTINUOUSLY. NS DECREASED TO 50 ML/HR DUE TO INCREASED WORK OF BREATHING PER 'S ORDER. PT IS BEDREST. AC/HS ACCUCHECKS WITH NO SLIDING SCALE. HAS BEEN NPO FOR POSSIBLE COLONOSCOPY PER LATER TODAY. SAW THE PT THIS MORNING AND WROTE ORDERS FOR A HEART CATH TO BE DONE RIGHT AWAY. STAT MEDS WERE GIVEN PRIOR TO PT BEING TAKEN TO LINE ERECTOR; LINE ERECTOR NURSES TOOK THE PT PER BED AT 1100. Follow up: Q4H H&H'S, MONITOR LABS, POST-OP LINE ERECTOR ORDERS
[2016-11-30 16:47] LABS: HEMATOCRIT 32.4 % (37.0-53.0); HEMOGLOBIN 9.9 g/dL (11.0-16.0)
--- NOTE | 2016-11-30 17:33 | NUR ---
Patient returned from laboratory technical specialist at 1430 with IABP, [place] and Femoral art line to R) groin. No hematoma noted, slight oozing under dressing. Patient was drowsy upon arrival, disoriented to time/place. Did become more alert late afternoon. Family at bedside, very inquisitive and asks many questions about care and labs. Tachycardic, too keep Augmented pressures greater than 100. PAS 60s, Dr Gonsalez aware and is ok with current vitals. Patient and family needs reminded frequently that patient cannot sit up or bend R) leg. R) band to R) radial in place, is oozing at times with release of air. Follow up: Continue
[2016-11-30 18:12] LABS: ANION GAP 20.6 (10.0-19.0); BLOOD UREA NITROGEN 10 mg/dL (6-24); CALCIUM 7.8 mg/dL (8.5-10.5); CHLORIDE 111 mMol/L (96-110); ESTIMATED GFR (MDRD EQUATION) > 60; MAGNESIUM 1.9 mg/dL (1.3-2.6); POTASSIUM 4.6 mMol/L (3.7-5.1); SODIUM 143 mMol/L (135-145)
[2016-11-30 18:13] LABS: CO2 16 mMol/L (22-32)
[2016-11-30 22:40] LABS: HEMATOCRIT 26.7 % (37.0-53.0); HEMOGLOBIN 8.2 g/dL (11.0-16.0)
[2016-12-01 03:06] LABS: HEMOGLOBIN 8.8 g/dL (11.0-16.0)
[2016-12-01 05:12] LABS: ALBUMIN 2.6 gm/dL (3.5-5.0); ALK PHOS 48 IU/L (33-138); ALT 17 IU/L (12-78); ANION GAP 14.8 (10.0-19.0); AST 54 IU/L (10-40); BLOOD UREA NITROGEN 9 mg/dL (6-24); CALCIUM 7.5 mg/dL (8.5-10.5); CHLORIDE 109 mMol/L (96-110); CO2 23 mMol/L (22-32); CPK 345 IU/L (35-332); ESTIMATED GFR (MDRD EQUATION) > 60; POTASSIUM 3.8 mMol/L (3.7-5.1); SODIUM 143 mMol/L (135-145); TOTAL PROTEIN 5.5 g/dL (6.0-8.4)
[2016-12-01 05:15] LABS: TOTAL BILIRUBIN 0.9 mg/dL (0.0-1.5)
--- NOTE | 2016-12-01 05:37 | NUR ---
PT LESS DROWSY THIS AM. SLEPT WELL THIS SHIFT AFTER DOSE OF REQUIP. A/OX3, PERRL, MOVES ALL EXTREMITIES WELL. REMAINS TACHYCARDIC WITH LOWER RATES-NOW 100S-110S, REMAINS ON IABP AT 1:1 AND 100% AUGMENTATION. MAPS >65 THIS SHIFT. NO COMPLICATIONS FROM EITHER GROIN OR RADIAL SIDE. O2 INCREASED TO 4L NC AT 0400 DUE TO DESATURATIONS WHILE ASLEEP. NO BM THIS SHIFT. UOP ADEQUATE, DROPPING OFF SHIFT PROGRESSED; CURRENTLY 30 ML/HR. SKIN REMAINS UNCHANGED. ALL LINES REMAIN INTACT AND PATENT. TWO UNITS PRBCs GIVEN FOR DROP IN HGB TO 8.2; NEXT HGB DRAW AT 0600. NO S/S OF BLEEDING FROM RADIAL OR GROIN SITE, NO N/V, NO BLOODY STOOLS, NO BRUISING OF FLANK. RADIAL AND GROIN SITES REMAIN SOFT, RADIAL WITH BRUISING. ALL PULSES PALPABLE/DOPPLARABLE, ALL EXTREMITIES REMAIN WARM/DRY. JESÚS MEJIA RN
[2016-12-01 06:14] LABS: BASOPHIL # 0.1 K/uL (0.0-0.2); BASOPHIL % 0.8 %; EOSINOPHIL # 0.6 K/uL (0.0-0.5); EOSINOPHIL % 4.7 %; HEMOGLOBIN 9.9 g/dL (11.0-16.0); IMMATURE GRANULOCYTE # 0.1 K/uL (0.0-0.3); IMMATURE GRANULOCYTE % 0.8 %; LYMPHOCYTE # 0.9 K/uL (0.8-4.0); LYMPHOCYTE % 6.6 %; MCH 26.8 pg (27.0-34.0); MCHC 31.9 gm/dL (32.0-36.5); MONOCYTE # 1.5 K/uL (0.0-1.0); MPV 10.1 fl (9.4-12.4); NEUTROPHIL # (ANC) 10.1 K/uL (1.4-9.0); NEUTROPHIL % 76.1 %; NRBC % 0 /100WBC (0-0.00); PLATELET COUNT 170 K/uL (150-450); RBC 3.69 M/uL (3.50-5.50); RDW-CV 16.8 % (11.9-14.6); WBC 13.3 K/uL (4.0-11.0)
[2016-12-01 06:22] LABS: PTT 27 SECONDS (25-32)
[2016-12-01 10:19] LABS: HEMATOCRIT 30.7 % (37.0-53.0); HEMOGLOBIN 9.7 g/dL (11.0-16.0)
--- NOTE | 2016-12-01 13:00 | NUR ---
Introduced self and role of care management to patient, his , 2 daughters and several grandchildren. Patient lives in [place] with his . He asks about HHC. Says his had HHC last year and it was a good thing. He is hasn't decided if he wants if but wanted to make sure I could set if up if needed through [facility]. Told him I can do that if he wants HHC. Daughter asks about Meals on Wheels. Told her I will get the phone number for [place] [facility] and she or her partents would need to call and set up, as it is self pay. Will follow.
[2016-12-01 14:32] LABS: HEMATOCRIT 30.1 % (37.0-53.0); HEMOGLOBIN 9.4 g/dL (11.0-16.0)
--- NOTE | 2016-12-01 16:10 | NUR ---
Significant Event: Patient is alert and oriented x3. IABP is running smoothe. We decreased to 1:2 beats. MAP has been in the 70's all day. Primacor gtt. continues. O2 was weaned to 3L today and no complaints of shortness of breath. Patient states he feels much better today. We will continue to weant the baloon pump tonight and hopefully remove tomorrow. Urine output was great with Lasix X2 today. He is tolerating a diet and has not had any bowel movement today or yesterday. GI bleeding is believed to be stopped. We will go to endoscopy when he is more stable and IABP removed. Follow up: Continue to monitor
[2016-12-01 18:02] LABS: HEMATOCRIT 30.5 % (37.0-53.0); HEMOGLOBIN 9.7 g/dL (11.0-16.0)
[2016-12-01 22:05] LABS: HEMATOCRIT 28.7 % (37.0-53.0); HEMOGLOBIN 9.1 g/dL (11.0-16.0)
[2016-12-02 02:46] LABS: HEMATOCRIT 29.6 % (37.0-53.0); HEMOGLOBIN 9.3 g/dL (11.0-16.0)
--- NOTE | 2016-12-02 05:20 | NUR ---
Significant Event: A/O. HR 100-120'S. MAP >65. AUGMENTED PRESSURES 90-100'S. IABP CONTINUES AT 1:2, 100% AUGMENTED. PAP SBP 60-80'S. 3L O2. HAS HAD A PRODUCTIVE COUGH OVERNIGHT, CLEAR SECRETIONS. LUNG SOUNDS CLEAR/CLEAR-DIM. NO BM OVERNIGHT. MARGINAL UOP. REQUESTED REQUIP AT . DR. ELLIS NOTIFIED. REQUIP NOW Q. ACCUCHECK WAS 287, GAVE 10 UNITS OF PATIENT'S TOUJEO INSULIN. REFUSED TO TURN AT TIMES. CONTINUES ON MILRINONE AT 0.375MCG/KG/MIN, HEPARIN AT 800 UNITS/HR. HGB 9.1, 9.3 OVERNIGHT. Follow up: WEAN IABP, MONITOR HGB.
[2016-12-02 06:18] LABS: HEMATOCRIT 29.5 % (37.0-53.0); HEMOGLOBIN 9.4 g/dL (11.0-16.0)
[2016-12-02 08:36] LABS: ALBUMIN 2.8 gm/dL (3.5-5.0); ALK PHOS 55 IU/L (33-138); ALT 14 IU/L (12-78); ANION GAP 11.4 (10.0-19.0); AST 29 IU/L (10-40); BLOOD UREA NITROGEN 10 mg/dL (6-24); CALCIUM 7.6 mg/dL (8.5-10.5); CHLORIDE 103 mMol/L (96-110); CO2 29 mMol/L (22-32); CPK 134 IU/L (35-332); CREATININE 0.9 mg/dL (0.6-1.3); ESTIMATED GFR (MDRD EQUATION) > 60; POTASSIUM 3.4 mMol/L (3.7-5.1); SODIUM 140 mMol/L (135-145); TOTAL BILIRUBIN 0.9 mg/dL (0.0-1.5); TOTAL PROTEIN 6.1 g/dL (6.0-8.4)
--- NOTE | 2016-12-02 16:23 | NUR ---
Significant Event: Patient is alert and oriented x3. VSS on 1L O2. HR 110's to 120's. IABP removed this am at 1035. Femostop device applied for pressure. Large hematoma formed within five minutes and manual pressure was then held for 45 minutes. Hematoma has resolved, but site is ecchymotic. Gauze and tegaderm dressing. Patient off bedrest at 1635. Lasix 80mg given IVP x2. 4075ml UOP this shift. Heparin gtt DC'd. 1800ml fluid restriction. No BM today. Family has been present most of the day. Patient has been calm and cooperative with cares. Follow up: Continue plan of care. Monitor BM.
--- NOTE | 2016-12-03 05:35 | NUR ---
Significant Event: PATIENT ALERT AND ORIENTED, FOLLOWS ALL COMMANDS. DENIES NUMBNESS/TINGLING THROUGHOUT. CONTINUES WITH TACHYCARDIA LOW 100'S. AFEBRILE. RIGHT GROIN IABP SITE ECCHYMOTIC, NO OOZING NOTED. CURRENTLY ON 2L PER NASAL CANNULA TITRATING TO KEEP SPO2 >94%. SPONTANEOUS PRODUCTIVE COUGH. GOOD APPETITE, BM X1. PUGA WITH ADEQUATE UOP, DECREASED OUTPUT THIS AM, NOTIFIED MD. PIV X1, MIDLINE TO LEFT UPPER ARM. CONTINUES ON PRIMACOR GTT. STOOD AT BEDSIDE X2, UP TO BEDSIDE COMMODE. Follow up:TRANSFER?
[2016-12-03 06:04] LABS: ANION GAP 9.1 (10.0-19.0); BLOOD UREA NITROGEN 11 mg/dL (6-24); CALCIUM 7.5 mg/dL (8.5-10.5); CHLORIDE 98 mMol/L (96-110); CO2 34 mMol/L (22-32); CREATININE 0.9 mg/dL (0.6-1.3); ESTIMATED GFR (MDRD EQUATION) > 60; MAGNESIUM 1.6 mg/dL (1.3-2.6); POTASSIUM 3.1 mMol/L (3.7-5.1); SODIUM 138 mMol/L (135-145)
--- NOTE | 2016-12-03 08:43 | NUR ---
PT SCREENED D/T LOS. EST NEEDS: [id number] KCALS, 108-122 GM PROTEIN, FLUIDS RESTRICTED. PT EATING WELL. NO NUTRITION-RELATED DIAGNOSIS IDENTIFIED. WILL ASSIST IF NEEDED.
--- NOTE | 2016-12-03 12:10 | NUR ---
Spoke with patient, his and VALENTINA. He says he is very nauseated at this time due to his K+ pills and the prep for colonscopy. He says he plans to go home when ready for discharge. Will follow.
--- NOTE | 2016-12-03 16:51 | NUR ---
Significant Event: TOOK OVER PT CARES AT 1030. PT ALERT AND ORIENTED X3. MOVES ALL EXTREMITIES. DENIES NUMBNESS/TINGLING. AMBULATES WITH 1-2 ASSIST/GAIT BELT/WALKER. 1 BM THIS SHIFT. TACHYCARDIA WITH RATES IN THE LOW 100'S. O2 AT 1-2 LITERS PER NASAL CANNULA. SBP'S HAVE BEEN RUNNING IN THE 90'S-LOW 100'S. AFEBRILE. PUGA PATENT, DRAINING YELLOW URINE. IV ZOFRAN GIVEN AT 1217 FOR COMPLAINTS OF NAUSEA AFTER TAKING PO POTASSIUM. MAGNESIUM LEVEL WAS 1.6; 3 GRAMS IV MAGNESIUM GIVEN X1. DRESSING TO R)GROIN INTACT; SITE IS ECCHYMOTIC-NO OOZING NOTED. MIDLINE TO L)UPPER ARM INTACT; IV TO R)FA SALINE LOCKED. PRIMACORE DRIP CONTINUES. CLEAR LIQUID DIET-NO RED OR PURPLE FLUIDS. 1800 ML FLUID RESTRICTION. SAW THE PT AND IS PLANNING ON AN EGD/COLONSCOPY TOMORROW. BOWEL PREP TO START AT 1800 TONIGHT. AC/HS ACCUCHECKS WITH MILD SLIDING SCALE, PLUS CARB COUNT. FAMILY HAS BEEN AT BEDSIDE ALL SHIFT. Follow up: BOWEL PREP, NPO AT 0400 TOMORROW, EGD/COLONSCOPY, MONITOR HGB.
--- NOTE | 2016-12-04 00:48 | NUR ---
Significant Event: A&OX3. CMS intact. On tele runs SR to ST. On 1L of O2 sats low 90s. Clear liquid diet for scope. First round of bowel prep given had one large loose stool. Midline to left upper arm. IV to R) forearm SL. Follow up: Scope today then could move to PCU after.
--- NOTE | 2016-12-04 04:08 | NUR ---
pt alert and oriented, 2 liters per nasal cannula. continues with bowel prep. uop marginal. plan: colonoscopy today.
[2016-12-04 05:24] LABS: BASOPHIL # 0.1 K/uL (0.0-0.2); BASOPHIL % 1.1 %; EOSINOPHIL % 10.1 %; HEMOGLOBIN 10.5 g/dL (11.0-16.0); IMMATURE GRANULOCYTE # 0.1 K/uL (0.0-0.3); IMMATURE GRANULOCYTE % 0.7 %; LYMPHOCYTE # 1.1 K/uL (0.8-4.0); LYMPHOCYTE % 11.1 %; MCH 26.7 pg (27.0-34.0); MCHC 31.8 gm/dL (32.0-36.5); MPV 10.4 fl (9.4-12.4); NEUTROPHIL # (ANC) 6.9 K/uL (1.4-9.0); NRBC % 0 /100WBC (0-0.00); PLATELET COUNT 201 K/uL (150-450); RBC 3.93 M/uL (3.50-5.50); RDW-CV 16.4 % (11.9-14.6); WBC 10.3 K/uL (4.0-11.0)
[2016-12-04 05:41] LABS: ALBUMIN 2.8 gm/dL (3.5-5.0); ANION GAP 8.9 (10.0-19.0); BLOOD UREA NITROGEN 9 mg/dL (6-24); CHLORIDE 99 mMol/L (96-110); CO2 34 mMol/L (22-32); CREATININE 0.9 mg/dL (0.6-1.3); ESTIMATED GFR (MDRD EQUATION) > 60; PHOSPHORUS 2.6 mg/dL (2.5-4.9); POTASSIUM 3.9 mMol/L (3.7-5.1); SODIUM 138 mMol/L (135-145)
--- NOTE | 2016-12-04 14:33 | NUR ---
Patient went Endoscopy at 1045. Transferred to PCU post procedure and never came back to ICU. Report called to Shannan. Personal belongings and medications taken to patient's new room.
--- NOTE | 2016-12-04 19:47 | NUR ---
PATIENT TRANSFERED FROM PACU TO PCU AT 14:30 PER CART WITH TRANSPORT STAFF. PATIENT ON 2L NC, NO C/O PAIN. REPORT FROM DIOGO SAAVEDRA FROM PACU, AND REPORT FROM MIKE SAAVEDRA ON ICU GIVEN TO PCU NURSE, EMELIA SAAVEDRA.
--- NOTE | 2016-12-05 04:49 | NUR ---
Significant Event: VSS.2L OXYGEN AT NIGHT, SATS >90%. PT UP TO BATHROOMX3 WITH NO BM. PT GIVEN SIMETHICON WITH RELIEF. PT R GROIN SITE IS CDI. PUGA TO BE REMOVED THIS SHIFT. PT DENIES CHEST PAIN. Follow up:CONT W/PLAN OF CARE, POSSIBLE DISMISSAL 12/05
[2016-12-05 05:22] LABS: BASOPHIL # 0.1 K/uL (0.0-0.2); EOSINOPHIL % 8.6 %; HEMATOCRIT 34.8 % (37.0-53.0); HEMOGLOBIN 10.8 g/dL (11.0-16.0); IMMATURE GRANULOCYTE % 0.3 %; LYMPHOCYTE # 1.3 K/uL (0.8-4.0); LYMPHOCYTE % 10.8 %; MCH 26.6 pg (27.0-34.0); MCV 85.7 fl (83.0-98.0); MONOCYTE % 8.3 %; MPV 10.4 fl (9.4-12.4); NEUTROPHIL # (ANC) 8.2 K/uL (1.4-9.0); NRBC % 0 /100WBC (0-0.00); RBC 4.06 M/uL (3.50-5.50); RDW-CV 16.4 % (11.9-14.6); WBC 11.6 K/uL (4.0-11.0)
[2016-12-05 05:29] LABS: PLATELET COUNT 249 K/uL (150-450)
[2016-12-05 05:37] LABS: ANION GAP 10.1 (10.0-19.0); BLOOD UREA NITROGEN 13 mg/dL (6-24); CALCIUM 8.1 mg/dL (8.5-10.5); CHLORIDE 96 mMol/L (96-110); ESTIMATED GFR (MDRD EQUATION) > 60; POTASSIUM 4.1 mMol/L (3.7-5.1); SODIUM 138 mMol/L (135-145)
[2016-12-05 05:39] LABS: CO2 36 mMol/L (22-32)
--- NOTE | 2016-12-05 17:13 | NUR ---
SIGNIFICANT EVENT: Pt A&Ox3. Pt makes inapporpriate comments during cares throughout the entire shift. VSS. HR's 85-95. 1+ edema to bilateral hands, 2+ edema to bilateral lower extremities. Pt on 2L NC at night, 1L thoguhout the day-when titrated to RA sats drop below 90%. Lungs are clear and diminished in the bilateral bases. Pt was started on lasix today-urinary frequency/urgency throughout the shift. Procedural site to right groin is ecchymotic, intact, and open to air. Midline IV to left upper arm and PIV to right forearm. Pt is a SBA gaitbelt/walker. Pt has knowledge of call light and makes needs known. Family present at bedside for most of the afternoon. FOLLOW UP: Life vest fitting at 10:15 tomorrow. 1500ml fluid restriction. Continue with plan of cares.
--- NOTE | 2016-12-06 04:14 | NUR ---
Significant Event:VSS.1L NC AT NIGHT. DESATS ON RA, 85%. PT UP SBA W/FWW. R GROIN IS INTACT, CUSTOMER ORDER CLERK, ECCHYMOTIC. PT VSS. LUE MIDLINES FLUSHES AND DRAWS. Follow up:LIFE VEST FITTING, POSSIBLE DISMISSAL 12/06
[2016-12-06 05:17] LABS: BASOPHIL # 0.1 K/uL (0.0-0.2); BASOPHIL % 0.9 %; EOSINOPHIL # 0.8 K/uL (0.0-0.5); EOSINOPHIL % 7.5 %; HEMATOCRIT 34.5 % (37.0-53.0); HEMOGLOBIN 10.9 g/dL (11.0-16.0); IMMATURE GRANULOCYTE % 0.4 %; LYMPHOCYTE # 1.4 K/uL (0.8-4.0); LYMPHOCYTE % 13.7 %; MCH 26.5 pg (27.0-34.0); MCHC 31.6 gm/dL (32.0-36.5); MCV 83.9 fl (83.0-98.0); MONOCYTE % 9.2 %; MPV 9.6 fl (9.4-12.4); NEUTROPHIL # (ANC) 7.1 K/uL (1.4-9.0); NEUTROPHIL % 68.3 %; NRBC % 0 /100WBC (0-0.00); PLATELET COUNT 267 K/uL (150-450); RBC 4.11 M/uL (3.50-5.50); RDW-CV 16.3 % (11.9-14.6); WBC 10.4 K/uL (4.0-11.0)
[2016-12-06 05:36] LABS: ALBUMIN 2.8 gm/dL (3.5-5.0); ALK PHOS 60 IU/L (33-138); ALT 13 IU/L (12-78); ANION GAP 9.5 (10.0-19.0); AST 12 IU/L (10-40); BLOOD UREA NITROGEN 18 mg/dL (6-24); CALCIUM 8.2 mg/dL (8.5-10.5); CHLORIDE 94 mMol/L (96-110); ESTIMATED GFR (MDRD EQUATION) > 60; POTASSIUM 3.5 mMol/L (3.7-5.1); SODIUM 137 mMol/L (135-145); TOTAL BILIRUBIN 0.8 mg/dL (0.0-1.5); TOTAL PROTEIN 6.4 g/dL (6.0-8.4)
[2016-12-06 05:41] LABS: CO2 37 mMol/L (22-32)
--- NOTE | 2016-12-06 15:21 | NUR ---
SIGNIFICANT EVENT: Pt A&Ox3. Family at bedside throughout shift. SBP 90-125; HR 67-88. 2+ bilateral edema to lower extremities. Pt fitted for (and is wearing) a life vest. Pt on 1L NC majority of shif-pt will remove O2 and reapply when he feels "increased short of breath". At about 1445 pt c/o back pain, dizziness, and increased WOB-oxygen increased to 3L. Pt using 2L NC currently. IS encouraged every hour-max achieved, 1000. No bowel movement-bowels active. Rt groin site ecchymotic. Midline to upper left arm-flushes well with good blood return. Pt ambulates SBA gaitbelt/walker. FOLLOW UP: Accu check ACHS. Fluid restriction 1500ml. Follow up with record label intern tomorrow regarding stent card.
--- NOTE | 2016-12-07 04:29 | NUR ---
Significant Event:appropriate and cooperative this shift. Pt VSS, 2L NC. Pt ambulated up in bryant, PEREZ and rested 3times. Lifevest on. R groin site CDI, ecchymotic. Eager to return home. Follow up: Call for stent cards
[2016-12-07 08:16] LABS: ANION GAP 9.9 (10.0-19.0); BLOOD UREA NITROGEN 18 mg/dL (6-24); CALCIUM 8.6 mg/dL (8.5-10.5); CHLORIDE 91 mMol/L (96-110); CREATININE 1.1 mg/dL (0.6-1.3); ESTIMATED GFR (MDRD EQUATION) > 60; MAGNESIUM 1.6 mg/dL (1.3-2.6); POTASSIUM 3.9 mMol/L (3.7-5.1); SODIUM 135 mMol/L (135-145)
[2016-12-07 08:17] LABS: CO2 38 mMol/L (22-32)
[2016-12-07 08:18] LABS: BASOPHIL # 0.1 K/uL (0.0-0.2); BASOPHIL % 0.9 %; EOSINOPHIL # 0.8 K/uL (0.0-0.5); EOSINOPHIL % 6.3 %; HEMATOCRIT 37.4 % (37.0-53.0); HEMOGLOBIN 11.8 g/dL (11.0-16.0); IMMATURE GRANULOCYTE # 0.2 K/uL (0.0-0.3); IMMATURE GRANULOCYTE % 1.8 %; LYMPHOCYTE # 1.5 K/uL (0.8-4.0); LYMPHOCYTE % 12.4 %; MCH 26.3 pg (27.0-34.0); MCHC 31.6 gm/dL (32.0-36.5); MCV 83.5 fl (83.0-98.0); MONOCYTE # 1.1 K/uL (0.0-1.0); MONOCYTE % 9.3 %; MPV 10.2 fl (9.4-12.4); NEUTROPHIL # (ANC) 8.5 K/uL (1.4-9.0); NEUTROPHIL % 69.3 %; NRBC % 0 /100WBC (0-0.00); PLATELET COUNT 392 K/uL (150-450); RBC 4.48 M/uL (3.50-5.50); RDW-CV 16.2 % (11.9-14.6); WBC 12.2 K/uL (4.0-11.0)
--- NOTE | 2016-12-07 11:00 | NUR ---
Nurse reports this a.m. family is concerned about patient going home. Daughter, Maegan talked to me in the bryant and she says he is planning to come to her home and she thinks he should go to a NH. She says she is already helping her mom and with her job and her family, she thinks it will be too much to care for him too. She doesn't want him to know she talked to me. Told her I am not sure he would qualify for SNF and I can't force him to go if he doesn't want to. Told her I can bring the subject up but she will have to tell him it is too much for her. Talked in the room with patient, his and his daughter Maegan. He plans to go to Maegan's home when ready for discharge. Talked to him about skilled care and he says he doesn't need that. Says he gets in and out of bed and to the bathroom by himself. He says he will not go to a facility, as he is going home with Maegan. Maegan tells him she is not sure she can take care of both of them. He says he can care for himself. She voices concerns if he has problems with his heart. He says he has the life vest now and it is to keep him from dropping over. They talk more. I told her we can see how he does with therapy but based on how he is moving in the room, I am not sure he will qualify for SNF. Offered HHC and they are interested in that. She says she is helping mom bath and can't do it for both of them. He tells her is doing his own shower here. He asks about a [facility] in [place]. Told them they are welcome to look into [facility] but it will be private pay. Will talk to Dr. Ceja about conversation and about PT/OT and HHC. Will follow.
--- NOTE | 2016-12-07 17:53 | NUR ---
Pt in for GI bleed. Pt complains of shortness of breathe at 1700, reinitiated 2L 02. Pt can be inappropriate at times. 1 assist. Pt on a ACHS and Carb count. 1550 Intake restriction. Saline locked with good blood return. Discharge goal is tommorrow.
--- NOTE | 2016-12-07 19:46 | NUR ---
Pt complained of SOB, reinitiated 2L 02. Alert and orientated. Can be inappropriate at times. Pt a carb count and ACHS. Saline locked on left forearm, good blood return. Pt independent. On a 1500 fluid restriction.
--- NOTE | 2016-12-07 19:54 | NUR ---
I HAVE READ AND AGREE WITH CHARTING DONE BY Janet LYMAN STUDENT NURSE.
--- NOTE | 2016-12-08 04:47 | NUR ---
Significant Event: Patient alert and oriented x3. SBP 97-101. All other vital signs stable. Stated had anxiety attack x2 this shift. All vital signs remained stable through entire shift. Trend oximetry study completed. Up independently in room but would call nurse in to help reposition. Patient inappropriate to nurse at times. Lifevest remains on. Battery changed with patient. C/O chest pressure. Refused pain meds. Sat up at bedside and stated pain went away. 1500ml fluid restriction continues. Calm and cooperative with all cares. Follow up: Home today?
[2016-12-08 05:53] LABS: HEMATOCRIT 32.2 % (37.0-53.0); HEMOGLOBIN 10.2 g/dL (11.0-16.0)
[2016-12-08 06:14] LABS: ANION GAP 10.6 (10.0-19.0); BLOOD UREA NITROGEN 19 mg/dL (6-24); CALCIUM 8.1 mg/dL (8.5-10.5); CHLORIDE 95 mMol/L (96-110); CO2 34 mMol/L (22-32); CREATININE 0.9 mg/dL (0.6-1.3); ESTIMATED GFR (MDRD EQUATION) > 60; MAGNESIUM 1.6 mg/dL (1.3-2.6); POTASSIUM 3.6 mMol/L (3.7-5.1); SODIUM 136 mMol/L (135-145)
[2016-12-08] MEDS ORDERED: ASPIRIN EC81 MG PO (11:53)
[2016-12-08] MEDS ORDERED: LASIX40 MG PO (12:04)
[2016-12-08] MEDS ORDERED: K-TAB ER20 MEQ PO (12:06)
[2016-12-08] MEDS ORDERED: COREG12.5 MG PO (12:12)
[2016-12-08] MEDS ORDERED: LIPITOR80 MG PO (12:13)
[2016-12-08] MEDS ORDERED: PRINIVIL (ZESTRI5 MG PO (12:19)
[2016-12-08] MEDS ORDERED: ALDACTONE25 MG PO (12:27)
[2016-12-08] MEDS ORDERED: BRILINTA60 MG PO (12:28)
--- NOTE | 2016-12-08 16:09 | NUR ---
DISCHARGE SUMMARY: Pt A&Ox3. In appropriate with cares throughout shift. VSS. Afebrile. Pt reported SOB following activity throughout shift. Trend-ox study last night-home on oxygen. Pts remaining concerns were presented to MD-concerns addressed according to pt. Left midline IV D/C 1458. Final tele strip ran. Pt D/C to home. and daughter at bedside during discharge instructions. Pt confirms understanding of new medications, medications stopped, and teaching provided regarding diabetic meals. Pt D/C via wheelchair at 1503 with and daughter-belongings were taken from room with pt.
== END 2016-12-08 15:45 | disposition disaster alternative care site (69) | DRG 981 ==
LOC: GICU 23:42 → GPCU 12-04 14:50
PROVIDERS: Internal Medicine; Internal Medicine Cardiovascular Disease; Internal Medicine Gastroenterology; ADMIT Family Medicine
PROC: 30233N1 Transfusion of Nonautologous Red Blood Cells into Peripheral Vein, Percutaneous Approach (ICD-10-PCS; 2016-11-29)
PROC: 4A023N6 Measurement of Cardiac Sampling and Pressure, Right Heart, Percutaneous Approach (ICD-10-PCS; principal; 2016-11-30)
PROC: 027135Z Dilation of Coronary Artery, Two Arteries with Two Drug-eluting Intraluminal Devices, Percutaneous Approach (ICD-10-PCS; 2016-11-30)
PROC: B211YZZ Fluoroscopy of Multiple Coronary Arteries using Other Contrast (ICD-10-PCS; 2016-11-30)
PROC: 0DJD8ZZ Inspection of Lower Intestinal Tract, Via Natural or Artificial Opening Endoscopic (ICD-10-PCS; 2016-12-04)
PROC: 0DJ08ZZ Inspection of Upper Intestinal Tract, Via Natural or Artificial Opening Endoscopic (ICD-10-PCS; 2016-12-04)
DX: K92.2 Gastrointestinal hemorrhage, unspecified (principal); I21.4 Non-ST elevation (NSTEMI) myocardial infarction; J96.01 Acute respiratory failure with hypoxia; I50.23 Acute on chronic systolic (congestive) heart failure; T81.19XA Other postprocedural shock, initial encounter; D62 Acute posthemorrhagic anemia; E11.9 Type 2 diabetes mellitus without complications; I10 Essential (primary) hypertension; I25.10 Atherosclerotic heart disease of native coronary artery without angina pectoris; I48.91 Unspecified atrial fibrillation; Z86.73 Personal history of transient ischemic attack (TIA), and cerebral infarction without residual deficits; E83.42 Hypomagnesemia; F41.9 Anxiety disorder, unspecified; K21.9 Gastro-esophageal reflux disease without esophagitis; K29.70 Gastritis, unspecified, without bleeding; Z79.4 Long term (current) use of insulin; E87.6 Hypokalemia; Z87.891 Personal history of nicotine dependence
CPT/HCPCS: C1725; C1751; C1769; C1874; C1887; C1894; C9113; C9460; C9600; C9606; J1644; J1940; J2260; J2370; J2405; J3010; J3475; J7030; J7040; J7050; P9016; Q9967

== ENCOUNTER 2016-12-10 19:31 | Inpatient (IN) | payer MEDICARE, OTHER ==
[~2016-12-10] VITALS: Ht 177.8 cm; Wt 113.8 kg
--- NOTE | ~2016-12-10 | DS ---
PATIENT'S NAME: LINSEY SILVA [facility] AGE: 71 Y [address] ROOM: [id number] [place], [place] [id number] LOCATION: GPCU ADMIT DATE: 12/10/2016 Discharge Summary DISCHARGE DATE: 12/13/2016 FAMILY PHYSICIAN: Dominick Vela MD ATTENDING PHYSICIAN: Aly Graves V CONTINUATION: PRINCIPAL DIAGNOSIS: Acute hypoxic respiratory failure. SECONDARY DIAGNOSES: 1. Heart failure with reduced ejection fraction, acute exacerbation. 2. Acute subsegmental pulmonary embolism. 3. Insulin-dependent diabetes mellitus. 4. Coronary artery disease with recent drug-eluting stents to the LAD and circumflex. HOSPITAL COURSE: A 71-year-old gentleman who was recently discharged from our facility where he was admitted for NSTEMI and received 5 drug-eluting stents to circumflex as well as LAD, admitted through the emergency department with increased shortness of breath. He was found to be in acute exacerbation of heart failure. A CAT scan was also done in the hospital which did show right subsegmental pulmonary embolism. He was admitted to the hospital for diuresis as well as therapeutic anticoagulation. He diuresed well during the course of the hospitalization with resolution of his dyspnea on exertion. His troponin levels were done in the hospital which were nonischemic in nature. EKG was also unchanged from the previous EKGs. He was initially started on Coumadin, but later on the day of discharge, the patient insisted to be discharged. I brought up the idea of novel anticoagulants, especially dabigatran because of the availability of a reversal agent. I had discussed at length about being on dabigatran as well as on dual antiplatelet for his drug-eluting stents. The patient understood the risk of bleeding, which included intracranial bleed as well as gastrointestinal bleed which could be life-threatening in case. The patient understood and verbalized understanding. We are going to give him one dose of dabigatran and DC the heparin after that. He was instructed to receive his medication on the pharmacy today. He is supposed to follow up with Dr. Vela who is his primary care physician on 12/15/[address] Zamora on 12/16/2016. He is supposed to wear a LifeVest because of the recent NSTEMI as well as low ejection fraction. DISCHARGE MEDICATIONS: 1. Aspirin 81 mg p.o. every day. 2. Lipitor 80 mg p.o. every day. 3. Coreg 12.5 mg p.o. twice daily. 4. Lasix 40 mg p.o. twice daily. PATIENT'S NAME: LINSEY SILVA [facility] AGE: 71 Y [address] ROOM: [place] [id number] LOCATION: GPCU ADMIT DATE: 12/10/2016 Discharge Summary DISCHARGE DATE: 12/13/2016 FAMILY PHYSICIAN: Dominick Vela MD ATTENDING PHYSICIAN: Aly Graves V 5. Insulin glargine 30 units subcu every day. 6. Latanoprost one drop every night at bedtime. 7. Lisinopril 5 mg p.o. every day. 8. Cetirizine 10 mg p.o. every day. 9. Multivitamin 1 tablet p.o. every day. 10. Potassium chloride 40 mEq p.o. every day. 11. Spironolactone 20 mEq p.o. every day. 12. Magnesium 250 mg p.o. every day. 13. Meclizine 25 mg p.o. twice daily p.r.n. 14. Glipizide/metformin 1 tablet p.o. twice daily. 15. Nitroglycerin 0.4 mg as needed sublingually. 16. Nexium 20 mg p.o. twice daily. 17. Guaifenesin 600 mg p.o. twice daily p.r.n. 18. Brilinta 60 mg p.o. twice daily. 19. Dabigatran 150 mg b.i.d. DISCHARGE ACTIVITY: As tolerated. DIET: Low-sodium diet. Continue to wear the LifeVest. FOLLOWUP: Follow up with Dr. Zamora on 12/16/2016 and follow up with Dr. Vela primary care physician on 12/15/2016 with a CBC as well as BMP. MD JACK HERRERA/kalen /[id number] d: 12/14/16 0229 t: 12/18/16 1502, DISCHARGE SUMMARY
--- NOTE | ~2016-12-10 | HP ---
PATIENT'S NAME: LINSEY SILVA [facility] AGE: 71 Y [address] ROOM: [place] [address] LOCATION: GPCU ADMIT DATE: 12/10/2016 History & Physical DISCHARGE DATE: FAMILY PHYSICIAN: Dominick Vela MD ATTENDING PHYSICIAN: CYNDIE RM V DATE OF SERVICE: CHIEF COMPLAINT: Shortness of breath. HISTORY OF PRESENT ILLNESS: The patient is a 71-year-old male who was discharged from the hospital 2 days ago. He had a complex hospitalization during which he had a non-STEMI, received 5 drug-eluting stents (one of those at the site of an occluded stent from 1-2 years ago) and also was found to have an ischemic cardiomyopathy with an EF of 20% to 25% and placed on a LifeVest, also with anemia for which he had upper and lower endoscopies done. The patient reports that immediately upon being discharged from the hospital, he was feeling fairly well, but in the course of last 2 days developed progressive dyspnea on exertion. He is not sure if he has gained any weight as he has not taken his weight. He endorses compliance with all medications. In the ER, the patient was initially somewhat labored and received 40 mg of Lasix and felt better. His saturations remained in mid 90s; however, a D- dimer was elevated and a CT of his chest was done. CT demonstrated a small right lower lobe pulmonary embolism. An admission was requested. The patient denies any chest pain, nausea, vomiting, diarrhea, or palpitations. REVIEW OF SYSTEMS: All 10 systems have been reviewed and negative aside from pertinent positives mentioned above. PAST MEDICAL HISTORY: 1. Recently diagnosed ischemic cardiomyopathy with chronic systolic congestive heart failure. 2. Coronary artery disease, status post 5 drug-eluting stent. 3. Recent workup of anemia concurrent with his non-STEMI. Endoscopy, colonoscopy revealed some minor esophagitis/gastritis and small ulcers in the cecum and none of these were bleeding. 4. Essential hypertension. 5. Insulin-dependent diabetes. PATIENT'S NAME: LINSEY SILVA [facility] AGE: 71 Y [address] ROOM: [place] [address] LOCATION: GPCU ADMIT DATE: 12/10/2016 History & Physical DISCHARGE DATE: FAMILY PHYSICIAN: Dominick Vela MD ATTENDING PHYSICIAN: CYNDIE RM V 6. Nocturnal hypoxia on oxygen supplementation. CURRENT MEDICATIONS: 1. Aspirin. 2. Atorvastatin. 3. Carvedilol. 4. Cetirizine. 5. Esomeprazole. 6. Furosemide. 7. Glipizide/metformin. 8. Guaifenesin. 9. Insulin glargine 30 units subcu daily. 10. Xalatan. 11. Lisinopril. 12. Magnesium. 13. Meclizine. 14. Multivitamin. 15. Nitroglycerin as needed. 16. Potassium chloride. 17. Spironolactone 25. 18. Brilinta 60. FAMILY HISTORY: Significant for heart disease in both sides of the family. SOCIAL HISTORY: Significant for a distant [id number] smoking history. PHYSICAL EXAMINATION: VITAL SIGNS: At the time of my visit, the patient's vital signs are temperature 97.7, pulse 64, respirations 20, blood pressure 119/59, and saturating anywhere from 94% to 98% on 1 L to room air. GENERAL: Appears as ill, elderly gentleman, in no acute distress. NEUROLOGIC: Exam is nonfocal. EYES: Exam shows pupils are equal and reactive to light. LYMPHATICS: Exam shows no cervical lymphadenopathy. ENDOCRINE: Exam shows no thyromegaly. LUNGS: Exam shows trace crackles at bases bilaterally. HEART: Exam reveals regular rate and rhythm without appreciable murmurs, gallops, or rubs. ABDOMEN: Soft, nontender, nondistended. : No costovertebral angle tenderness. VASCULAR: A 2+ pedal pulses with 1+ right lower extremity edema. SKIN: Warm and dry. MUSCULOSKELETAL: Exam is unremarkable. PATIENT'S NAME: LINSEY SILVA [facility] AGE: 71 Y [address] ROOM: [place] [address] LOCATION: GPCU ADMIT DATE: 12/10/2016 History & Physical DISCHARGE DATE: FAMILY PHYSICIAN: Dominick Vela MD ATTENDING PHYSICIAN: CYNDIE RM V PSYCHIATRIC: Appropriate mood, cognition, and affect. LABORATORY DATA: Studies performed in the ER significant for an unremarkable basic metabolic profile, pro-BNP of 2198, two sets of negative cardiac enzymes, white count of 11.8, hemoglobin of 11.1, and platelets of 454. INR is 1.0. On the CAT scan, I do appreciate some pulmonary congestion, in addition to the above described PE. ASSESSMENT AND PLAN: This is a 71-year-old male who is presenting with dyspnea and pulmonary embolus. Individual problems to be addressed as follows: 1. Dyspnea/[id number] respiratory failure without hypoxia. My sense is that his symptoms are primarily due to acute exacerbation of chronic congestive systolic heart failure. The patient did have pulmonary congestion on the CT and felt better after receiving Lasix in the ER. By the time, I saw him he was quite comfortable, and as such, I feel that a pulmonary embolus (which is quite small) probably does not explain his deterioration of his respiratory status. We might have to enhance his diuretic regimen and endorse to him the need for dietary compliance and fluid restriction. 2. Small pulmonary embolus. This is a very difficult situation to treat. The patient is already on aspirin and Brilinta and has had some presumed gastrointestinal bleeding. As such, we will start him on heparin drip for the time being and monitor his hemoglobins. Ultimately, we will make a decision about leaving him on oral anticoagulants versus potentially putting an inferior vena cava filter. We will also check his lower extremity Dopplers to see if there is a clot burden. 3. Insulin-dependent diabetes. We will continue him on his home regimen, but hold off on metformin as he did receive contrast. Additional management will depend on clinical course. Time dedicated to this patient encounter is 35 minutes. MD JODY GILL/kalen /[id number] D: 520 T: 427 HISTORY & PHYSICAL
--- NOTE | ~2016-12-10 | ENPV ---
Vascular Lower Extremities DVT Study Procedure Demographics Patient Name LINSEY SILVA Date of Study 12/11/2016 Patient Number [id number] Gender Male Date of 1945 Age 71 Visit Number [id number] Height Weight Number Room Number G6329 BSA BMI Referring Dane Bazan MD Interpreting Ronaldo Arrington MD Physician Physician Physician Jeimy Lu V Rotary Drill Operator Physician Tester Armature Or Fields Avila Sultana [facility], T Conclusions Summary There are several mildly enlarged lymph nodes noted in the inguinal groin. No evidence of deep vein thrombosis or superficial thrombophlebitis in the lower extremities bilaterally . Procedure Type of Study: Veins:Lower Extremities DVT Study, Venous Duplex Lower Extremity Bilateral. Indications for Study:Pulmonary embolism. Appropriate Use Criteria:9 Allergies - Insulin. - Penicillin. - Eggs. Patient Status:Routine. Study Location:Inpatient Portable. Technical Quality:Adequate visualization. Velocities are measured in cm/s ; Diameters are measured in cm Right Lower Extremities DVT Study Measurements Right 2D and Doppler Measurements + + + + +------+------+ + !Location !Visualized!Compressibility!Thrombosis!Signal!Reflux!Reflux ! ! ! ! ! ! ! !(sec) ! + + + + +------+------+ + !GSV Thigh !Yes !Yes !None !Phasic! ! ! + + + + +------+------+ + !Common !Yes !Yes !None !Phasic! ! ! !Femoral ! ! ! ! ! ! ! + + + + +------+------+ + !Prox !Yes !Yes !None !Phasic! ! ! !Femoral ! ! ! ! ! ! ! + + + + +------+------+ + !Mid Femoral!Yes !Yes !None !Phasic! ! ! + + + + +------+------+ + !Dist !Yes !Yes !None !Phasic! ! ! !Femoral ! ! ! ! ! ! ! + + + + +------+------+ + !Popliteal !Yes !Yes !None !Phasic! ! ! + + + + +------+------+ + !Gastroc !Yes !Yes !None ! ! ! ! + + + + +------+------+ + !PTV !Yes !Yes !None ! ! ! ! + + + + +------+------+ + !Peroneal !Yes !Yes !None ! ! ! ! + + + + +------+------+ + Left Lower Extremities DVT Study Measurements Left 2D and Doppler Measurements + + + + +------+------+ + !Location !Visualized!Compressibility!Thrombosis!Signal!Reflux!Reflux ! ! ! ! ! ! ! !(sec) ! + + + + +------+------+ + !GSV Thigh !Yes !Yes !None !Phasic! ! ! + + + + +------+------+ + !Common !Yes !Yes !None !Phasic! ! ! !Femoral ! ! ! ! ! ! ! + + + + +------+------+ + !Prox !Yes !Yes !None !Phasic! ! ! !Femoral ! ! ! ! ! ! ! + + + + +------+------+ + !Mid Femoral!Yes !Yes !None !Phasic! ! ! + + + + +------+------+ + !Dist !Yes !Yes !None !Phasic! ! ! !Femoral ! ! ! ! ! ! ! + + + + +------+------+ + !Popliteal !Yes !Yes !None !Phasic! ! ! + + + + +------+------+ + !Gastroc !Yes !Yes !None ! ! ! ! + + + + +------+------+ + !PTV !Yes !Yes !None ! ! ! ! + + + + +------+------+ + !Peroneal !Yes !Yes !None ! ! ! ! + + + + +------+------+ + Signature dtt: ERMELINDA CHANEY dtd: 12/11/16 0923 Physician Self Hilda
--- NOTE | ~2016-12-10 | ER ---
PATIENT'S NAME: LINSEY SILVA [facility] AGE: 71 Y [address] ROOM: [place] [address] LOCATION: GPCU ADMIT DATE: 12/10/2016 ER/Outpatient Report DISCHARGE DATE: FAMILY PHYSICIAN: Dominick Vela MD ATTENDING PHYSICIAN: CYNDIE RM V Time of Arrival: 1935 hours. Time of Evaluation: 1935 hours. CHIEF COMPLAINT: Shortness of breath. HISTORY OF PRESENT ILLNESS: The patient is a 71-year-old male who presents to the emergency department today with chief complaint of shortness of breath. He reports that it has gotten worse over the past 2 days. Denies any fevers, does have some chills, has had productive white phlegm, cough. Denies any chest pain. No diaphoresis. He denies any nausea or vomiting. He has had a little weakness. Pain is currently 0/10 in severity. The patient was recently discharged from the hospital after undergoing a GI bleed requiring transfusions. He also required 5 drug-eluting stents. PAST MEDICAL HISTORY: Diabetes mellitus, TIA, gastrointestinal bleed with recent transfusion, coronary artery disease, status post stents, diabetes mellitus, atrial fibrillation, and hypertension. PAST SURGICAL HISTORY: Cholecystectomy, appendectomy, tonsillectomy, heart stents in February 2016 as well as November 2016. SOCIAL HISTORY: The patient quit smoking in 1983. Denies any alcohol or illicit drug use. ALLERGIES: PENICILLIN AND INSULIN. MEDICATIONS: Please see list. ROS: All systems are reviewed by myself and are negative with the exception of those discussed in HPI and past medical history. PHYSICAL EXAMINATION: PATIENT'S NAME: LINSEY SILVA [facility] AGE: 71 Y [address] ROOM: [address] [address] LOCATION: GPCU ADMIT DATE: 12/10/2016 ER/Outpatient Report DISCHARGE DATE: FAMILY PHYSICIAN: Dominick Vela MD ATTENDING PHYSICIAN: CYNDIE RM V VITAL SIGNS: Blood pressure 118/60, pulse 82, respiratory rate 18, temperature 97, oxygen saturation 96% on 1 L nasal cannula. GENERAL: The patient is a 71-year-old male, who appears of stated age, in mild acute respiratory distress. HEENT: Normocephalic, atraumatic. Pupils are equal, round, and reactive to light and accommodation. Extraocular motions are intact. NECK: Supple. There is no nuchal rigidity. CARDIOVASCULAR: Regular rate and rhythm. LUNGS: Crackles at bases. Otherwise, no wheezes. Mild respiratory distress after ambulation. ABDOMEN: Soft, nontender, and nondistended. No rebound, rigidity, or guarding. MUSCULOSKELETAL: The patient moves all 4 extremities. SKIN: Warm and dry. LABORATORY DATA AND X-RAYS: Obtained. EKG is obtained, is interpreted by myself, shows sinus rhythm with a rate of [address] elevation or ST depression. Nonspecific T- wave flattening. No deep T-wave inversions. CBC: White blood cell count 11.8, hemoglobin normal, hematocrit 35.2, platelets 454. PTT is 25, PT is 11.6. INR is 1.1. D-dimer is elevated at 2.42. CMP is unremarkable. LFTs are unremarkable. Mag is 1.7. CK, CK-MB, and troponin are all unremarkable. ProBNP is 2198, which is improved from December 07, when it was 2975. A 2-view chest x-ray is obtained, is interpreted by myself, shows no acute process. A CT scan of the chest, PE study is obtained, does show a right lower lobe PE. I did discuss this result with the radiologist. IMPRESSION: 1. Right lower lobe pulmonary embolism. 2. Acute on chronic systolic congestive heart failure, EF 20-25%. 3. Recent gastrointestinal bleed requiring transfusion. 4. Coronary artery disease with recent drug-eluting stent placement. 5. Lifevest in place. 5. Initial visit. EMERGENCY DEPARTMENT COURSE: The patient was brought back to the examination room. Seen and evaluated by myself. IV is established. Laboratory analysis and imaging are obtained as described above. The patient was given 60 mg of Lasix IV. Results are obtained from the patient's workup. His D-dimer was elevated. He has recently been in the hospital including ICU visit. A CT scan of the chest, PE study was obtained, is interpreted by myself as well as the radiologist. It does show evidence of right lower lobe pulmonary embolism. I have discussed the case with Dr. Rm. He does agree to accept the patient for further evaluation, treatment, and management. I will hold off on anticoagulation, as the patient is only having respiratory distress with exertion and is on 1 L nasal cannula. He can have further discussion about treatments. I have PATIENT'S NAME: LINSEY SILVA [facility] AGE: 71 Y [address] ROOM: [id number] [place] [id number] LOCATION: [facility] ADMIT DATE: 12/10/2016 ER/Outpatient Report DISCHARGE DATE: FAMILY PHYSICIAN: Dominick Vela MD ATTENDING PHYSICIAN: CYNDIE RM V discussed the results of the testing with the patient and his family is at the bedside. Their questions are answered. DISPOSITION: The patient is admitted under the care of Dr. Rm and the Hospitalist Service in stable condition. DO PRABHA HENSLEY/kalen /[id number] d: 12/11/16 0323 t: 12/11/16 1739, OUTPATIENT REPORT
[~2016-12-10 19:31] MED LIST: ALDACTONE25 MG PO; ASPIRIN EC81 MG PO; BRILINTA60 MG PO; CARDURA4 MG PO; CLOPIDOGREL75 MG PO; COREG12.5 MG PO; COZAAR100 MG PO; GLIPIZIDE-METF1 EAC2 PO; HUMIBID LA (MU600 MG PO; K-TAB ER20 MEQ PO; LASIX40 MG PO; LIPITOR80 MG PO; MAGNESIUM250 M1 PO; MECLIZINE HCL25 MG PO; NEXIUM20 MG PO; NITROSTAT0.4 MG SL; PRINIVIL (ZESTRI5 MG PO; THERA-VITE W/ B1 TAB PO; TOPROL XL100 MG PO; TOUJEO SOL300 UNIT/1 SUB-Q; VICTOZA 2-0.6 MG/0.1 PO; XALATAN2.5 ML OPHTH; ZYRTEC10 MG PO
[2016-12-10 20:05] LABS: BASOPHIL # 0.2 K/uL (0.0-0.2); BASOPHIL % 1.3 %; EOSINOPHIL # 0.8 K/uL (0.0-0.5); EOSINOPHIL % 6.9 %; HEMATOCRIT 35.2 % (37.0-53.0); HEMOGLOBIN 11.1 g/dL (11.0-16.0); IMMATURE GRANULOCYTE # 0.1 K/uL (0.0-0.3); IMMATURE GRANULOCYTE % 0.6 %; LYMPHOCYTE # 1.4 K/uL (0.8-4.0); LYMPHOCYTE % 11.7 %; MCH 25.8 pg (27.0-34.0); MCHC 31.5 gm/dL (32.0-36.5); MCV 81.9 fl (83.0-98.0); MONOCYTE # 1.4 K/uL (0.0-1.0); MONOCYTE % 12.2 %; MPV 10.3 fl (9.4-12.4); NEUTROPHIL # (ANC) 7.9 K/uL (1.4-9.0); NEUTROPHIL % 67.3 %; NRBC % 0 /100WBC (0-0.00); PLATELET COUNT 454 K/uL (150-450); RDW-CV 17.1 % (11.9-14.6); WBC 11.8 K/uL (4.0-11.0)
[2016-12-10 20:12] LABS: PROTIME 11.6 SECONDS (9.8-11.4); PTT 25 SECONDS (25-32)
[2016-12-10 20:24] LABS: ALBUMIN 3.2 gm/dL (3.5-5.0); ALK PHOS 84 IU/L (33-138); ALT 14 IU/L (12-78); ANION GAP 14.1 (10.0-19.0); AST 11 IU/L (10-40); BLOOD UREA NITROGEN 18 mg/dL (6-24); CALCIUM 8.5 mg/dL (8.5-10.5); CHLORIDE 96 mMol/L (96-110); CO2 30 mMol/L (22-32); CPK 49 IU/L (35-332); CREATININE 1.3 mg/dL (0.6-1.3); ESTIMATED GFR (MDRD EQUATION) 54; MAGNESIUM 1.7 mg/dL (1.8-2.6); POTASSIUM 4.1 mMol/L (3.7-5.1); SODIUM 136 mMol/L (135-145)
[2016-12-10 20:27] LABS: TOTAL BILIRUBIN 1.2 mg/dL (0.0-1.5)
[2016-12-10 22:31] LABS: CPK 52 IU/L (35-332)
[2016-12-11 07:20] LABS: BASOPHIL # 0.1 K/uL (0.0-0.2); BASOPHIL % 1.2 %; EOSINOPHIL # 0.7 K/uL (0.0-0.5); EOSINOPHIL % 6.3 %; HEMATOCRIT 35.9 % (37.0-53.0); HEMOGLOBIN 11.3 g/dL (11.0-16.0); IMMATURE GRANULOCYTE # 0.1 K/uL (0.0-0.3); IMMATURE GRANULOCYTE % 0.6 %; LYMPHOCYTE # 1.5 K/uL (0.8-4.0); LYMPHOCYTE % 13.8 %; MCH 26.2 pg (27.0-34.0); MCHC 31.5 gm/dL (32.0-36.5); MCV 83.1 fl (83.0-98.0); MONOCYTE # 1.1 K/uL (0.0-1.0); MONOCYTE % 10.4 %; MPV 10.6 fl (9.4-12.4); NEUTROPHIL # (ANC) 7.3 K/uL (1.4-9.0); NEUTROPHIL % 67.7 %; NRBC % 0 /100WBC (0-0.00); PLATELET COUNT 425 K/uL (150-450); RBC 4.32 M/uL (3.50-5.50); RDW-CV 17.1 % (11.9-14.6); WBC 10.8 K/uL (4.0-11.0)
[2016-12-11 07:34] LABS: ANION GAP 9.8 (10.0-19.0); CALCIUM 8.7 mg/dL (8.5-10.5); CREATININE 1.3 mg/dL (0.6-1.3); POTASSIUM 3.8 mMol/L (3.7-5.1)
--- NOTE | 2016-12-11 07:35 | NUR ---
2330: PT ADMITTED FROM ER WITH SMALL PULMONARY EMBOLISM TO R) LOWER LOBE. PT HAD BEEN DISCHARGED FROM HOSP ON 12/08/16 AFTER HAVING A GI BLEED AND ME WITH STENTS. HE HAD NOT BEEN FEELING WELL AND HAD INCREASED SOB. HE WAS PLACED ON 1L O2. HE IS GONNA BE STARTED ON A HEPARIN GTT. HE WAS GIVEN LASIX IN ER. HE CURRENTLY HAS A LIFE VEST IN PLACE DUE TO HIS LOW EF. HIS AND DAUGHTER ACCOMPANIED HIM TO HIS ROOM.
--- NOTE | 2016-12-11 07:51 | NUR ---
Significant Event: SEE ADMISSION NOTE. PT STARTED ON HEPARIN WITH 8500 UNIT BOLUS WITH THE GTT STARTED AT 1700 UNITS. UP FREQUENTLY TO THE BR AFTER LASIX WAS GIVEN. ONLY URINATING IN SMALL AMOUNTS. O2 REMAINS AT 1L. ALOE APPLIED TO EXCORIATED BUTTOCKS. Follow up:
--- NOTE | 2016-12-11 15:04 | NUR ---
Introduced self and role of care management to pt. He states he was doing great since last discharge but stared having sob at [facility]. He states he is up with a cane and able to do most everything for himself. His is also there but has the early stages of alzhiemers. I did explain at this time is observation status and did give him the gross and a copy. He states he plans on going back home with his daughter and denies needs. Will assist as needed.
--- NOTE | 2016-12-11 15:46 | NUR ---
Significant Event: Patient is alert and oriented x3. VSS and titrated to room air. Cardiac and diabetic diet. Accuchecks AC/HS. Aloe vesta to bottom crack for stage 2 pressure ulcer. Turning side to side every 2 hours. Had doppler of the legs today. Heparin gtt infusing. Next PTT-HP is at 1830. Accuchecks AC/HS. Voids frequently. Up with SBA. Denies chest pain or shortness of breath. Life vest battery changed. Tele on. Cooperative with cares.
[2016-12-12 04:08] LABS: HEMATOCRIT 36.2 % (37.0-53.0); HEMOGLOBIN 11.3 g/dL (11.0-16.0)
[2016-12-12 04:18] LABS: INR - (THERAPEUTIC) 1.14 (0.92-1.07)
[2016-12-12 04:23] LABS: ALBUMIN 3.2 gm/dL (3.5-5.0); ANION GAP 13.1 (10.0-19.0); CALCIUM 8.4 mg/dL (8.5-10.5); CREATININE 1.2 mg/dL (0.6-1.3); MAGNESIUM 1.9 mg/dL (1.8-2.6); POTASSIUM 4.1 mMol/L (3.7-5.1)
--- NOTE | 2016-12-12 05:03 | NUR ---
PATIENT IS A&OX3. VSS AND IS PUT ON 1L AT HS BY RESPIRATORY THERAPY DUE TO FEELING SOB. DIABETIC DIET WITH CARB COUNTING. ACCUCHECK ACHS, HS ACCUCHECK READS 225. IV TO L) HAND WITH HEPARIN INFUSING. ALOE VESTA TO PRESSURE ULCER SITES. FREQUENT URINATION EVERY 1 HOUR IN SMALL AMOUNTS THROUGHOUT SHIFT. UP WITH SBA, NEEDS MINIMAL ASSIST. C/O AN EPISODE OF SOBX1 THIS SHIFT WHILE AMBULATING BACK TO BED. LIFE VEST ON. RESTING IN BED COMFORTABLY.
[2016-12-12 13:58] LABS: BASOPHIL # 0.2 K/uL (0.0-0.2); BASOPHIL % 1.4 %; EOSINOPHIL % 8.4 %; HEMATOCRIT 39.3 % (37.0-53.0); HEMOGLOBIN 12.4 g/dL (11.0-16.0); IMMATURE GRANULOCYTE # 0.1 K/uL (0.0-0.3); IMMATURE GRANULOCYTE % 0.6 %; LYMPHOCYTE # 1.6 K/uL (0.8-4.0); MCH 25.6 pg (27.0-34.0); MCHC 31.6 gm/dL (32.0-36.5); MCV 81.2 fl (83.0-98.0); MONOCYTE # 1.3 K/uL (0.0-1.0); MPV 10.2 fl (9.4-12.4); NEUTROPHIL % 65.6 %; NRBC % 0 /100WBC (0-0.00); PLATELET COUNT 386 K/uL (150-450); RBC 4.84 M/uL (3.50-5.50); RDW-CV 16.8 % (11.9-14.6); WBC 12.1 K/uL (4.0-11.0)
[2016-12-12 14:09] LABS: INR - (THERAPEUTIC) 1.12 (0.92-1.07); PROTIME 11.8 SECONDS (9.8-11.4)
[2016-12-12 14:12] LABS: ANION GAP 12.6 (10.0-19.0); CALCIUM 8.8 mg/dL (8.5-10.5); CREATININE 1.3 mg/dL (0.6-1.3); POTASSIUM 4.6 mMol/L (3.7-5.1)
--- NOTE | 2016-12-12 19:20 | NUR ---
Significant event: Patient is alert and oriented x3. VSS on room air. Has IV to left hand with a Heparin drip, no changes made today. PTHP recheck for 0230. Hematest x1 done and was negative. Is ACHS on moderate scale, and carb count. Is on a 2000ml fluid restriction. Ambulates with SBA-independant. Had shower today. Life vest in place, patient manages this. Possible discharge tomarrow. Cooperative with cares.
[2016-12-13 02:57] LABS: HEMATOCRIT 38.2 % (37.0-53.0)
[2016-12-13 03:05] LABS: INR - (THERAPEUTIC) 1.18 (0.92-1.07); PROTIME 12.4 SECONDS (9.8-11.4)
--- NOTE | 2016-12-13 04:36 | NUR ---
PT IS A&OX3 THIS SHIFT. VVS ON R/A. C/O OF PAIN IN L) SHOULDER, STATES IT IS RELATED TO HIS FIBROMYALGIA. POSSIBLE DISCHARGE TODAY. ACCCHICHI ISSA. LAST ACCHUCHECK READS 192. CON'T TO HAVE FREQUENT URINATION IN SMALL AMOUNTS. WALKS WITH STAND BY ASSIST. IV IN L) HAND WITH HEPARIN CONTINUING TO INFUSE AT 34 UNITS/HR. NEEDS MINIMAL ASSIST WITH CARES. PRN VALIUM GIVEN AT 2100.
[2016-12-13] MEDS ORDERED: PRADAXA150 MG PO (12:50)
--- NOTE | 2016-12-13 15:47 | NUR ---
Dismissal Note: Patient is alert and oriented x3. Family members present for the dismissal. Information given on general discharge instructions, new medications (pradax) and follow up apppoints. Patient verbalized understanding and had questions about some of his medications he takes at home. Questions were answered and then he had no furthur questions at that time. IV removed. Patient wheeled to the front of the [facility] entrance for discharge. Patient was wearing his life vest at the time of dismissal. Vitals were stable. Cooperative with dismissal.
== END 2016-12-13 14:09 | disposition disaster alternative care site (69) | DRG 189 ==
LOC: GMED 19:31 → GPCU 22:14
PROVIDERS: Emergency Medicine; Internal Medicine; ADMIT Internal Medicine
DX: J96.01 Acute respiratory failure with hypoxia (principal); I21.4 Non-ST elevation (NSTEMI) myocardial infarction; I26.99 Other pulmonary embolism without acute cor pulmonale; I50.23 Acute on chronic systolic (congestive) heart failure; D64.9 Anemia, unspecified; E11.9 Type 2 diabetes mellitus without complications; I10 Essential (primary) hypertension; G45.9 Transient cerebral ischemic attack, unspecified; K92.2 Gastrointestinal hemorrhage, unspecified; I25.10 Atherosclerotic heart disease of native coronary artery without angina pectoris; I25.5 Ischemic cardiomyopathy; K20.9 Esophagitis, unspecified; Z79.82 Long term (current) use of aspirin
CPT/HCPCS: J1644; J1940; Q9967

== ENCOUNTER → 2016-12-18 | Outpatient (CLI) | payer MEDICARE, OTHER ==
[~2016-12-18] MED LIST changes: +ASPIR-LOW81 MG PO; +ATIVAN 0.5MG0.5 MG PO; +ENTRESTO 24 MG1 EACH PO; +PRADAXA150 MG PO
[2016-12-18 17:28] LABS: BASOPHIL # 0.2 K/uL (0.0-0.2); BASOPHIL % 1.4 %; EOSINOPHIL % 8.4 %; HEMATOCRIT 38.7 % (37.0-53.0); HEMOGLOBIN 12.5 g/dL (11.0-16.0); IMMATURE GRANULOCYTE # 0.1 K/uL (0.0-0.3); IMMATURE GRANULOCYTE % 0.5 %; LYMPHOCYTE # 1.3 K/uL (0.8-4.0); LYMPHOCYTE % 11.1 %; MCH 25.8 pg (27.0-34.0); MCHC 32.3 gm/dL (32.0-36.5); MONOCYTE # 1.1 K/uL (0.0-1.0); MONOCYTE % 9.6 %; MPV 11.2 fl (9.4-12.4); NEUTROPHIL # (ANC) 7.9 K/uL (1.4-9.0); NRBC % 0 /100WBC (0-0.00); PLATELET COUNT 325 K/uL (150-450); RBC 4.84 M/uL (3.50-5.50); RDW-CV 16.3 % (11.9-14.6); WBC 11.5 K/uL (4.0-11.0)
[2016-12-18 17:34] LABS: ALBUMIN 3.8 gm/dL (3.5-5.0); ANION GAP 13.7 (10.0-19.0); CALCIUM 8.8 mg/dL (8.5-10.5); CREATININE 1.3 mg/dL (0.6-1.3); POTASSIUM 4.7 mMol/L (3.7-5.1)
[2016-12-18 17:35] LABS: TOTAL BILIRUBIN 0.9 mg/dL (0.0-1.5)
== END ==
LOC: LNHI 17:00
PROVIDERS: Internal Medicine Cardiovascular Disease
DX: I50.22 Chronic systolic (congestive) heart failure (principal); I25.10 Atherosclerotic heart disease of native coronary artery without angina pectoris; E11.65 Type 2 diabetes mellitus with hyperglycemia

== ENCOUNTER → 2017-01-22 | Outpatient (CLI) | payer MEDICARE, OTHER ==
[2017-01-22 18:26] LABS: ANION GAP 12.8 (10.0-19.0); CREATININE 1.3 mg/dL (0.6-1.3); POTASSIUM 4.8 mMol/L (3.7-5.1)
== END | disposition disaster alternative care site (69) ==
LOC: LNHI 17:51
PROVIDERS: Internal Medicine Cardiovascular Disease
DX: I50.22 Chronic systolic (congestive) heart failure (principal); I25.10 Atherosclerotic heart disease of native coronary artery without angina pectoris

== ENCOUNTER → 2017-02-19 | Outpatient (CLI) | payer MEDICARE, OTHER ==
[2017-02-19 15:54] LABS: ANION GAP 12.1 (10.0-19.0); BLOOD UREA NITROGEN 14 mg/dL (6-24); CALCIUM 8.8 mg/dL (8.5-10.5); CHLORIDE 102 mMol/L (96-110); CO2 28 mMol/L (22-32); ESTIMATED GFR (MDRD EQUATION) > 60; POTASSIUM 4.1 mMol/L (3.7-5.1); SODIUM 138 mMol/L (135-145)
== END | disposition disaster alternative care site (69) ==
LOC: LNHI 15:34
PROVIDERS: Internal Medicine Cardiovascular Disease
DX: I50.22 Chronic systolic (congestive) heart failure (principal); I25.10 Atherosclerotic heart disease of native coronary artery without angina pectoris

== ENCOUNTER 2017-03-20 15:21 | Inpatient (IN) | payer MEDICARE, OTHER ==
[~2017-03-20] VITALS: Ht 177.8 cm; Wt 114.3 kg
--- NOTE | ~2017-03-20 | CON ---
PATIENT'S NAME: LINSEY SILVA [facility] AGE: 72 Y [address] ROOM: [place] [address] LOCATION: GPCU ADMIT DATE: 03/20/2017 Consultation DISCHARGE DATE: FAMILY PHYSICIAN: Dominick Vela MD ATTENDING PHYSICIAN: James ROA REFERRING PHYSICIAN: JOAN GERMAN MD REASON FOR CONSULT: GI bleed. HISTORY OF PRESENT ILLNESS: This is a 72-year-old male with history of coronary artery disease, status post multiple stents recent PCI stent placement as well as history of pulmonary embolism and requiring multiple anticoagulants. The patient presents with history of rectal bleeding described as jelly-like dark blood starting Wednesday morning. He was hemodynamically stable. The patient has been taking Pradaxa as well as Brilinta in view of above-noted problems. He has had previous episodes of GI bleed whereby he has undergone upper and lower GI endoscopy in his home town as well as recently in November when upper endoscopy was normal except for gastritis and colonoscopy revealed a cecal ulcer and has been doing well till lately. He otherwise denies use of nonsteroidals, aspirin, and Excedrin. PAST MEDICAL HISTORY: 1. Diabetes. 2. Hypertension. 3. Coronary artery disease. 4. Ischemic cardiomyopathy. 5. History of pulmonary embolism. MEDICATIONS: As noted in MAR, presently has to continue taking Brilinta in view of his cardiopulmonary issues. SOCIAL HISTORY: Former smoker. He denies alcohol use. FAMILY HISTORY: None for GI cancer. REVIEW OF SYSTEMS: The 10-point review of system otherwise negative except as noted above. PHYSICAL EXAMINATION: GENERAL: An elderly man who is awake, alert, and appropriate. PATIENT'S NAME: LINSEY SILVA [facility] AGE: 72 Y [address] ROOM: [place] [address] LOCATION: GPCU ADMIT DATE: 03/20/2017 Consultation DISCHARGE DATE: FAMILY PHYSICIAN: Dominick Vela MD ATTENDING PHYSICIAN: James ROA VITAL SIGNS: Stable as noted in nursing sheet. HEENT: Normocephalic and atraumatic. Pupils are round and reactive. Nonicteric sclerae. NECK: Supple. No palpable nodes no thyromegaly. CHEST: Clear to auscultation. HEART: S1 and S2 normal. ABDOMEN: Soft and obese with a long midline scar. No palpable tenderness. No masses. EXTREMITIES: 1+ pitting edema. SKIN: No rashes. NEUROLOGIC: Awake, alert, and appropriate. No focal deficits. LABORATORY DATA: Lab work is reviewed showing a hemoglobin of 12.3, BUN of 12, and creatinine 1. CT of the abdomen showing evidence of diverticulosis. ASSESSMENT AND PLAN: This is a 72-year-old male with history of ischemic cardiomyopathy, coronary stents recent 1 in November of 2016, as well as underlying history of PE on combination of Pradaxa and Brilinta. The patient is to continue with his anticoagulation as per Cardiology direction and will undergo upper and lower GI endoscopy for diagnostic and therapeutic purposes. Further recommendations post-colonoscopy. JOAN GERMAN MD AM/kalen /[id number] d: 03/21/17 1052 t: 03/22/17 0743, CONSULTATION REPORT
--- NOTE | ~2017-03-20 | DS ---
PATIENT'S NAME: LINSEY SILVA [facility] AGE: 72 Y [address] ROOM: [id number] [place], [place] [address] LOCATION: GPCU ADMIT DATE: 03/20/2017 Discharge Summary DISCHARGE DATE: 03/21/2017 FAMILY PHYSICIAN: Dominick Vela MD ATTENDING PHYSICIAN: James Carbone ADMITTING DIAGNOSIS: Gastrointestinal bleed. DISCHARGE DIAGNOSIS: Gastrointestinal bleed status post colonoscopy and cauterization. SECONDARY DIAGNOSES: 1. History of coronary artery disease. 2. History of pulmonary embolism. 3. History of diabetes mellitus type 2. 4. Hypertension. 5. Ischemic cardiomyopathy. PROCEDURES: EGD and colonoscopy. CONSULTATION: GI. HISTORY OF PRESENT ILLNESS: The patient is a 72-year-old gentleman with history of ischemic cardiomyopathy, CAD status post multiple PCI, last PCI done on November 2016, diabetes mellitus and history of GI bleed who presents here with bright red per rectum. The patient has history of GI bleed on last admission on November after he presented with hypotension and GI bleed. His stay was complicated with chest pain status post 5 stent placement with drug- eluting stent including in-stent thrombosis. The patient had EGD and colonoscopy done afterwards and colonoscopy shows bleeding around the cecum. HOSPITAL COURSE: On admission, the patient's vital sign was stable. Serial H and H were stable, initial hemoglobin of 12.3, on discharge his hemoglobin was 12.2. There was no more GI bleed seen during his stay. The patient was seen by GI. The patient had colonoscopy and EGD done. We continued the patient's Brilinta, but held the patient's Pradaxa. The EGD was unremarkable. Colonoscopy showed bleeding ulcer around the cecum which was cauterized. There was no bleeding afterwards. The patient tolerated the procedure well. Repeat H and H were stable. Long discussion was made about anticoagulation use. The patient has been on Pradaxa for close to 4 months now for his PE. As the patient does not have a history of cancer or history of hypercoagulability and also this is his first history of PE. His Pradaxa was discontinued as current recommendation and is to at least treat the patient with unprovoked PE for at least 3 months. Due to his history of multiple GI bleed, it is reasonable to stop his Pradaxa as he has been treated at least PATIENT'S NAME: LINSEY SILVA [facility] AGE: 72 Y [address] ROOM: [address] [place], [place] [address] LOCATION: [facility] ADMIT DATE: 03/20/2017 Discharge Summary DISCHARGE DATE: 03/21/2017 FAMILY PHYSICIAN: Dominick Vela MD ATTENDING PHYSICIAN: James Carbone for 3 months. The patient was discharged on aspirin and Brilinta. Aspirin was added as the patient has multiple drug-eluting stents that was placed on November. Case was discussed with the patient and family member. All the patient's and family questions were answered in satisfaction. CONDITION: Stable. DISPOSITION: Home. DISCHARGE MEDICATION: Please see MAR. DISCHARGE INSTRUCTIONS: If there is any more bleeding, chest pain, shortness of breath, dizziness, fever, productive cough and abdominal pain; please present to the nearest emergency department. RECOMMENDATION: No use of NSAIDs. FOLLOWUP: Followup with primary care physician and Cardiology. PHYSICAL EXAMINATION: VITAL SIGNS: Stable. HEAD: Normocephalic, atraumatic. CHEST: Clear to auscultation bilaterally. HEART: Regular rate and rhythm. No murmurs, rubs, or gallops. ABDOMEN: Soft, nontender, and nondistended. EXTREMITIES: Trace edema. SKIN: Warm to touch. SLOT AMBASSADOR: Alert and oriented x3. Greater than 30 minutes was spent on discharge planning. MD NATIVIDAD LEE/kalen /[id number] d: 03/21/17 2356 t: 03/23/17 0617, DISCHARGE SUMMARY
--- NOTE | ~2017-03-20 | HP ---
PATIENT'S NAME: LINSEY SILVA [facility] AGE: 72 Y [address] ROOM: [address] [place] [address] [facility] ADMIT DATE: 03/20/2017 History & Physical DISCHARGE DATE: FAMILY PHYSICIAN: Dominick Vela MD ATTENDING PHYSICIAN: James ROA DATE OF SERVICE: CHIEF COMPLAINT: GI bleed. HISTORY OF PRESENT ILLNESS: The patient is a 72-year-old gentleman with ischemic cardiomyopathy, history of CAD, status post multiple PCI, last PCI done in November 2016, diabetes mellitus, and history of GI bleed who presents here with bright red blood per rectum. The patient reports that earlier this morning he had some maroon- colored bowel movement. He reports that in the afternoon he started having red jelly like bowel movement. However, later on in the afternoon, he started having bright red blood per rectum. The patient presented to the emergency department for further evaluation. The patient denies any chest pain, shortness of breath, fever, chills, productive cough, orthopnea, abdominal pain, nausea, vomiting, and hematemesis. Of note, the patient has a history of GI bleed. The patient was recently admitted to our hospital in November with GI bleed from [place]. During that admission, patient was hypotensive and has had close to 3 to 4 g/dL hemoglobin loss. The patient was admitted and was seen by GI. During his GI evaluation, the patient was noted to have chest pain with elevated troponin enzymes. The patient was taken to the cardiac catheterization technician. In cardiac catheterization technician, the patient had 5 stent placements of drug-eluting stents including stent placement and in-stent thrombosis. Afterwards, the patient had colonoscopy and EGD done. Colonoscopy showed ulcer in the cecum and gastritis was noted on EGD. However, the patient subsequently had a subsegmental PE and was started on Pradaxa. The patient is currently on Brilinta and Pradaxa. PAST MEDICAL HISTORY: Diabetes mellitus type 2, hypertension, ischemic cardiomyopathy, history of PE, history of coronary artery disease, and history of GI bleed. SURGICAL HISTORY: Cholecystectomy, appendectomy, EGD and colonoscopy. FAMILY HISTORY: Mother of heart attack. Dad also had history of coronary artery disease. PATIENT'S NAME: LINSEY SILVA [facility] AGE: 72 Y [address] ROOM: [id number] [place], [place] [address] [facility] ADMIT DATE: 03/20/2017 History & Physical DISCHARGE DATE: FAMILY PHYSICIAN: Dominick Vela MD ATTENDING PHYSICIAN: James ROA SOCIAL HISTORY: He quit smoking in 1983. He seldom drinks. 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 The patient lives in [place]. MEDICATIONS: Currently being reconciled. REVIEW OF SYSTEMS: All systems have been reviewed and are negative except for what I mentioned in the HPI. PHYSICAL EXAMINATION: VITAL SIGNS: The patient is afebrile, blood pressure 142/73, heart rate of 79, respiratory rate of 16, saturating 95% on room air. GENERAL APPEARANCE: The patient is alert and awake, in no acute distress. HEENT: Head: Normocephalic and atraumatic. Eyes: Extraocular muscles intact. Sclerae nonicteric. Mouth: Moist oral mucosa. NOSE: No nasal discharge. EARS: No ear discharge. CHEST: Clear to auscultation bilaterally. HEART: Regular rate and rhythm. No murmurs, rubs, or gallops. ABDOMEN: Soft, nontender, and nondistended. Bowel sounds present. SKIN: Warm to touch. EXTREMITIES: Trace pitting edema. MUSCULOSKELETAL: Range of motion intact. No obvious joint effusions. AUTO PARTS COUNTER PERSON: The patient is alert and oriented x3. Motor and sensory are grossly intact. DIAGNOSTIC DATA: Labs done show hemoglobin of 12.3, platelets 299, white blood cell count of 11.2, MCV of 81.1. BUN of 12, creatinine of 1, CO2 of 28. CT of abdomen shows scattered colon diverticula. No free air with no findings of bowel obstruction or diverticulitis identified. ASSESSMENT AND PLAN: 1. Gastrointestinal bleed. Etiology most likely secondary to lower GI bleed. We will hold the patient's Pradaxa and continue Brilinta due to history of extensive coronary artery disease with recent stenting. Case discussed with Cardiology. Also, case discussed with GI. We will start the patient on Protonix 40 mg IV b.i.d. We will check hemoglobin q.6 hours. We will also type and screen. The patient is scheduled for EGD and colonoscopy in the morning. 2. History of coronary artery disease, status post multiple stents. We will continue Brilinta 90 mg b.i.d. as the patient is high risk for cardiac PATIENT'S NAME: LINSEY SILVA [facility] AGE: 72 Y [address] ROOM: [id number] [place], [place] [address] [facility]: [facility] ADMIT DATE: 03/20/2017 History & Physical DISCHARGE DATE: FAMILY PHYSICIAN: Dominick Vela MD ATTENDING PHYSICIAN: James ROA events as antiplatelet is discontinued. 3. History of pulmonary embolism. The patient was diagnosed in early December with subsegmental PE. The patient is on Pradaxa 150 mg b.i.d. We will hold Pradaxa for now as patient is at risk for ongoing GI bleed. 4. Ischemic cardiomyopathy. Patient appears compensated. 5. Diabetes mellitus type 2. We will decrease the patient's long-acting insulin to 20 units at bedtime. As the patient is going to be n.p.o. and patient takes 30 units of Toujeo, we will change it to 20 in the morning. 6. Morbid obesity, ongoing. Greater than 70 minutes were spent in patient care. Greater than 50% of the time was spent in patient direct care. Case was discussed with the ED physician, GI, and Cardiology. Code status was discussed. On admission, code status is full code. MD NATIVIDAD LEE/kalen /[id number] D: [id number] T: [id number] HISTORY & PHYSICAL
--- NOTE | ~2017-03-20 | ER ---
PATIENT'S NAME: LINSEY SILVA [facility] AGE: 72 Y [address] ROOM: [place] [address] LOCATION: [facility] ADMIT DATE: 03/20/2017 ER/Outpatient Report DISCHARGE DATE: 03/21/2017 FAMILY PHYSICIAN: Dominick Vela MD ATTENDING PHYSICIAN: James Carbone Time of Arrival: 1521 hours. Time of Evaluation: 1536 hours. ID: 72-year-old male. CHIEF COMPLAINT: Bloody stools. HISTORY OF PRESENT ILLNESS: The patient is a 72-year-old male whom I saw in conjunction with Dr. Sylvain Strickland, 2nd year family practice resident. The patient said this morning he noted some blood in his stools on 2 different occasions. He has no other complaints. He had some slight left lower quadrant pain. No chest pain, no lightheadedness, no dizziness. No other problems or concerns, but he has had a prior history of GI bleed in November of 2016, and he is anticoagulated with Pradaxa and Brilinta. ALLERGIES: PENICILLIN. CURRENT MEDICATIONS: 1. Brilinta. 2. Pradaxa. 3. Carvedilol. PAST MEDICAL HISTORY: 1. GI bleed November 2016. Colonoscopy in November showed an ulcer in the cecum and gastritis on EGD. 2. Kte-VB-nkphngbux AL November 2016 with placement of 5 drug-eluting stents. 3. 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 4. Diabetes mellitus type 2. 5. Hypertension. 6. Ischemic cardiomyopathy with reduced EF. According to his last discharge summary in November, he was supposed to wear a LifeVest because of the recent non-STEMI and low EF for which he had medications those as listed plus his other medications will be reconciled as he does not have the list of them with him at this time. PATIENT'S NAME: LINSEY SILVA [facility] AGE: 72 Y [address] ROOM: [place] [address] LOCATION: [facility] ADMIT DATE: 03/20/2017 ER/Outpatient Report DISCHARGE DATE: 03/21/2017 FAMILY PHYSICIAN: Dominick Vela MD ATTENDING PHYSICIAN: James Carbone PAST SURGICAL HISTORY: Cholecystectomy, appendectomy, EGD, colonoscopy, coronary artery stents. FAMILY HISTORY: Mother secondary to AL. Father with coronary artery disease. SOCIAL HISTORY: The patient lives in [place]. His primary care physician is Dr. Vela in [place]. His web application developer is Dr. Zamora here in [place] with [facility], and his daycare provider is Dr. Dietz. The patient is , tobacco use quit in 1983, alcohol use, rare. REVIEW OF SYSTEMS: All systems reviewed and negative other than what is noted in the HPI. PHYSICAL EXAMINATION: VITAL SIGNS: Height 5 feet 10 inches, weight 114.3 kg, blood pressure 162/78, pulse 85, respirations 16, temperature 97.1, sats 98% on room air. GENERAL: A 72-year-old male in no acute distress. HEENT: Head: Normocephalic, atraumatic. Ears: TMs translucent both ears. Mucosa pink, no lesions. Mouth: No lesions. Pharynx benign. NECK: Supple. No lymphadenopathy. LUNGS: Clear to auscultation. HEART: Regular rate and rhythm. ABDOMEN: Soft, nondistended, tender to palpation in the left lower abdomen. No rebound or guarding. No CVA tenderness. SKIN: [place], warm, and dry. No lesions or rashes noted. NEURO: No focal deficit. LABORATORY DATA AND X-RAYS: The patient has some stool which we sent for Hemoccult, which looks like "raspberry jelly." An IV was initiated. Sodium 139, potassium 4.2, chloride 103, CO2 of 28, BUN 12, creatinine 1, blood sugar 232. Liver enzymes normal. Hemoglobin 12.3, hematocrit 39, platelets 299, white count 11.2 with a normal differential. INR 1.45. CT scan of the abdomen and pelvis with IV contrast, scattered colon diverticula. No evidence of diverticulitis, no free air. Noncalcified pulmonary nodule at the left base, stable since prior imaging. IMPRESSION: 1. Gastrointestinal bleed. With the patient's history of previous gastrointestinal bleed and his anticoagulation, he will be admitted for serial H and H and GI consultation. The patient currently hemodynamically stable and his hemoglobin is also stable. 2. History of subsegmental pulmonary embolism on chronic anticoagulation. 3. Cardiomyopathy with low EF. PATIENT'S NAME: LINSEY SILVA [facility] AGE: 72 Y [address] ROOM: [facility] [place] [address] [facility] AD[facility] DATE: 03/20/2017 ER/Outpatient Report DISCHARGE DATE: 03/21/2017 FAMILY PHYSICIAN: Dominick Vela MD ATTENDING PHYSICIAN: Jmaes Carbone 4. Prior gastrointestinal bleed. 5. Diabetes mellitus. The patient did have contrast today, so we will need to hold his metformin for 48 hours. 6. Known coronary artery disease. Currently with no chest pain. PLAN: For admission per Dr. Carbone who evaluated the patient in the ER. MD JUAN JOSE SUN/kalen /[id number] d: 03/21/17 1830 t: 03/26/17 0701, OUTPATIENT REPORT
[~2017-03-20 15:21] MED LIST changes: -ASPIR-LOW81 MG PO; -ATIVAN 0.5MG0.5 MG PO; -ENTRESTO 24 MG1 EACH PO
[2017-03-20 16:13] LABS: BASOPHIL # 0.1 K/uL (0.0-0.2); BASOPHIL % 0.8 %; EOSINOPHIL # 0.8 K/uL (0.0-0.5); EOSINOPHIL % 6.7 %; HEMOGLOBIN 12.3 g/dL (11.0-16.0); IMMATURE GRANULOCYTE # 0.1 K/uL (0.0-0.3); IMMATURE GRANULOCYTE % 0.5 %; LYMPHOCYTE # 1.5 K/uL (0.8-4.0); LYMPHOCYTE % 13.5 %; MCH 25.6 pg (27.0-34.0); MCHC 31.5 gm/dL (32.0-36.5); MCV 81.1 fl (83.0-98.0); MONOCYTE # 0.7 K/uL (0.0-1.0); MONOCYTE % 6.3 %; MPV 10.2 fl (9.4-12.4); NEUTROPHIL # (ANC) 8.1 K/uL (1.4-9.0); NEUTROPHIL % 72.2 %; NRBC % 0 /100WBC (0-0.00); PLATELET COUNT 299 K/uL (150-450); RBC 4.81 M/uL (3.50-5.50); WBC 11.2 K/uL (4.0-11.0)
[2017-03-20 16:15] LABS: RDW-CV 18.9 % (11.9-14.6)
[2017-03-20 16:22] LABS: INR - (THERAPEUTIC) 1.45 (0.92-1.07); PROTIME 15.3 SECONDS (9.8-11.4); PTT 50 SECONDS (25-32)
[2017-03-20 16:30] LABS: ALBUMIN 3.4 gm/dL (3.5-5.0); ANION GAP 12.2 (10.0-19.0); CALCIUM 8.8 mg/dL (8.5-10.5); POTASSIUM 4.2 mMol/L (3.7-5.1); TOTAL PROTEIN 7.4 g/dL (6.0-8.4)
[2017-03-20 16:31] LABS: TOTAL BILIRUBIN 0.5 mg/dL (0.0-1.5)
[2017-03-20] MEDS ORDERED: ALDACTONE25 MG PO (20:15)
[2017-03-20] MEDS ORDERED: ATIVAN 0.5MG0.5 MG PO (20:16)
[2017-03-20] MEDS ORDERED: ENTRESTO 24 MG1 EACH PO (20:16)
[2017-03-20 22:50] LABS: HEMATOCRIT 39.6 % (37.0-53.0); HEMOGLOBIN 12.9 g/dL (11.0-16.0)
[2017-03-21 04:32] LABS: HEMATOCRIT 39.6 % (37.0-53.0); HEMOGLOBIN 12.6 g/dL (11.0-16.0)
[2017-03-21 10:03] LABS: HEMATOCRIT 38.2 % (37.0-53.0); HEMOGLOBIN 12.2 g/dL (11.0-16.0)
[2017-03-21] MEDS ORDERED: ASPIR-LOW81 MG PO (12:36)
== END 2017-03-21 13:00 | disposition disaster alternative care site (69) | DRG 395 ==
LOC: GMED 15:21 → GPCU 17:55
PROVIDERS: Family Medicine; ADMIT Internal Medicine
PROC: 0DJ08ZZ Inspection of Upper Intestinal Tract, Via Natural or Artificial Opening Endoscopic (ICD-10-PCS; principal; 2017-03-21)
PROC: 0DJD8ZZ Inspection of Lower Intestinal Tract, Via Natural or Artificial Opening Endoscopic (ICD-10-PCS; principal; 2017-03-21)
DX: K63.3 Ulcer of intestine (principal); E11.9 Type 2 diabetes mellitus without complications; I25.5 Ischemic cardiomyopathy; I25.10 Atherosclerotic heart disease of native coronary artery without angina pectoris; Z95.5 Presence of coronary angioplasty implant and graft; I10 Essential (primary) hypertension; Z86.711 Personal history of pulmonary embolism; Z79.01 Long term (current) use of anticoagulants; Z79.4 Long term (current) use of insulin
CPT/HCPCS: C9113; J7030

== ENCOUNTER → 2017-04-29 | Outpatient (CLI) | payer MEDICARE, OTHER ==
[~2017-04-29] MED LIST changes: +ASPIR-LOW81 MG PO; +ATIVAN 0.5MG0.5 MG PO; +ENTRESTO 24 MG1 EACH PO
[2017-04-29 17:10] LABS: ANION GAP 11.7 (10.0-19.0); CALCIUM 8.8 mg/dL (8.5-10.5); CREATININE 0.9 mg/dL (0.6-1.3); POTASSIUM 4.7 mMol/L (3.7-5.1)
== END ==
LOC: LNHI 16:49
PROVIDERS: Internal Medicine Cardiovascular Disease
DX: E78.2 Mixed hyperlipidemia (principal); E11.65 Type 2 diabetes mellitus with hyperglycemia; I25.10 Atherosclerotic heart disease of native coronary artery without angina pectoris; I25.5 Ischemic cardiomyopathy; I50.22 Chronic systolic (congestive) heart failure